=== PATIENT | male | born 1985 | race Two or more races ===

== ENCOUNTER 2020-04-20 09:48 | Outpatient (REF) | payer OTHER, SELFPAY | END 2020-04-20 09:49 | disposition home or self-care (01) | LOC: HO.LAB 09:48 | PROVIDERS: Visit Provider Internal Medicine | DX: Z20.828 Contact with and (suspected) exposure to other viral communicable diseases (principal) | CPT/HCPCS: U0003 ==

== ENCOUNTER 2020-06-05 13:16 | Emergency (ER) | payer OTHER, SELFPAY ==
[2020-06-05 13:53] VITALS: BP 125/81; PULSE 90; RESP 16; TEMP 36.8; O2SAT 98; BMI 28.3
--- NOTE | 2020-06-05 14:19 | ED.PSYCH ---
HPI - Psych General Chief Complaint: ETOH/Substance Use Stated Complaint: feet swelling,wrong medication Time Seen by Provider: 06/05/20 14:14 Source: patient Mode of arrival: ambulatory Limitations: no limitations History of Present Illness MD complaint: feels depressed, anxiety and substance abuse Onset (ago): day(s) (3) Duration: constant History of same: Yes Relieving factors: none Exacerbating factors: drug use Context: recent drug abuse Associated psychiatric symptoms: depression Associated symptoms: denies other symptoms Treatments prior to arrival: none Related Data Allergies Allergy/AdvReac Type Severity Reaction Status Date / Time Penicillins [PENICILLINS] Allergy Intermediate REDNESS, Unverified 03/07/20 18:02 SOB acetaminophen [Tylenol] Allergy Unknown stomach Verified 11/17/12 00:00 upset, rash ibuprofen [IBUPROFEN] Allergy Unknown ITCHY Unverified 03/07/20 18:02 THROAT Tylenol Precise Pain Allergy Unknown Uncoded 11/16/18 00:00 Relieving Review of Systems Review of Systems: Constitutional : No Fever, No Chills ENT/Mouth : No Ear Pain, No Nasal Congestion, No sore throat Eyes: No Eye Pain, No Swelling, No Redness Cardiovascular : No Chest Pain, No SOB Respiratory : No Cough, No Sputum, No Dyspnea Gastrointestinal : No Nausea, No Vomiting, No Diarrhea, No Hematochezia, No Melena Genitourinary : No Dysuria, No Urinary Frequency, No Hematuria Musculoskeletal : No Myalgias Skin : No Skin Lesions, No rash Neuro : No Weakness, No Numbness, No Paresthesias, No Dizziness, No Headache Psych : positive Anxiety, positive Depression, no SI/HI Heme/Lymph: No Lymphadenopathy Endocrine : No Polyuria, No Polydipsia All other systems reviewed and are negative [facility] Past Medical History Attestation statement: The following information was validated with the patient. Medical History Anxiety Depression Social History Social History Alcohol intake: never Smoking Status: Current every day smoker Use of substances other than those prescribed or required for medical reasons: Yes Substance Use Type: Crack/Cocaine, Marijuana and Opiates Advance Directives: No Advance Directives Information Provided: Yes Physical Exam Vital Signs: Vital Signs: Last Vital Signs Temp 98.3 F 06/05/20 13:53 Pulse 90 06/05/20 13:53 Resp 16 06/05/20 13:53 BP 125/81 06/05/20 13:53 Pulse Ox 98 06/05/20 13:53 Body Mass Index 28.3 Appearance: Alert. Oriented X3. No acute distress. Eyes: Pupils equal, round and reactive to light. ENT: Pharynx normal. Neck: Normal inspection. Neck supple. CVS: Normal heart rate and rhythm. Pulses normal. Respiratory: No respiratory distress. Breath sounds normal. Abdomen: Soft and nontender. Skin: Skin warm and dry. Normal skin color. Normal skin turgor. Extremities: No lower extremity edema. No calf ttp Neuro: Oriented X 3. No motor deficit. No sensory deficit. CN 2 -12 intact Psych: + depression and anxiety, no SI/HI, flat affect Course Course Course Narrative: signed out to Dr. Barrow pending [facility] MDM - Psych MDM Narrative Medical decision making narrative: 34 yo male with anxiety depression asking to speak to crisis at this time will obtain labs, and N consult he has no SI/HI he is voluntary Lab Data Result diagrams: 06/05/20 14:49 06/05/20 14:49 Labs: Lab Results 06/05/20 06/05/20 06/05/20 Range/Units 14:49 14:49 14:49 WBC 5.8 (4.8-10.8) X10*3/uL RBC 4.68 (4.60-5.80) X10*6/uL Hgb 14.2 (14.0-18.0) g/dl Hct 41.8 L (42-52) % MCV 89.3 (80-98) fL MCH 30.3 (27.0-33.0) pg MCHC 34.0 (31.0-36.0) g/dl RDW 13.6 (11.0-16.0) % Plt Count 135 L (160-400) X10*3/uL MPV 12.1 (9.4-12.4) fL Immature Gran % (Auto) 4.1 H (0.0-0.4) % Neut % (Auto) 55.2 (45-73) % Lymph % (Auto) 24.8 (20-40) % Cotton % (Auto) 9.9 (2-11) % Eos % (Auto) 5.5 H (0-4) % Baso % (Auto) 0.5 (0-2) % Lymph # (Auto) 1.5 (1.2-4.9) X10*3/uL Cotton # (Auto) 0.6 (0.1-1.2) X10*3/uL Eos # (Auto) 0.3 (0.0-0.4) X10*3/uL Baso # (Auto) 0.0 (0.0-0.2) X10*3/uL Abs Immat Gran (auto) 0.24 H (0.00-0.03) X10*3/uL Absolute Neuts (auto) 3.2 (2.0-8.3) X10*3/uL Absolute Nucleated RBC 0.000 (0.0-0.012) X10*3/uL Nucleated RBC % (auto) 0.0 (0.0-0.2) /100WBC Sodium 138 (135-145) mmol/L Potassium 4.2 (3.3-5.1) mmol/l Chloride 102 (96-108) mmol/L Carbon Dioxide 31 H (22-29) mmol/L Anion Gap 9 L (12-20) BUN 15 (9-16) mg/dL Creatinine 0.92 (0.5-1.4) mg/dL Estim Creat Clear Calc 108.4 Estimated GFR > 60 Random Glucose 92 (60-115) mg/dL Calcium 9.2 (8.4-10.2) mg/dL Ethyl Alcohol mg/dL COVID-19 (STEPHANI) Negative (Negative) COVID-19 Clin Com See Note 06/05/20 Range/Units 14:49 WBC (4.8-10.8) X10*3/uL RBC (4.60-5.80) X10*6/uL Hgb (14.0-18.0) g/dl Hct (42-52) % MCV (80-98) fL MCH (27.0-33.0) pg MCHC (31.0-36.0) g/dl RDW (11.0-16.0) % Plt Count (160-400) X10*3/uL MPV (9.4-12.4) fL Immature Gran % (Auto) (0.0-0.4) % Neut % (Auto) (45-73) % Lymph % (Auto) (20-40) % Cotton % (Auto) (2-11) % Eos % (Auto) (0-4) % Baso % (Auto) (0-2) % Lymph # (Auto) (1.2-4.9) X10*3/uL Cotton # (Auto) (0.1-1.2) X10*3/uL Eos # (Auto) (0.0-0.4) X10*3/uL Baso # (Auto) (0.0-0.2) X10*3/uL Abs Immat Gran (auto) (0.00-0.03) X10*3/uL Absolute Neuts (auto) (2.0-8.3) X10*3/uL Absolute Nucleated RBC (0.0-0.012) X10*3/uL Nucleated RBC % (auto) (0.0-0.2) /100WBC Sodium (135-145) mmol/L Potassium (3.3-5.1) mmol/l Chloride (96-108) mmol/L Carbon Dioxide (22-29) mmol/L Anion Gap (12-20) BUN (9-16) mg/dL Creatinine (0.5-1.4) mg/dL Estim Creat Clear Calc Estimated GFR Random Glucose (60-115) mg/dL Calcium (8.4-10.2) mg/dL Ethyl Alcohol < 10 mg/dL COVID-19 (STEPHANI) (Negative) COVID-19 Clin Com Discharge Plan Discharge Clinical Impression: Active substance abuse, Anxiety Instructions: Depression (ED) Additional Instructions: return to ED for any worsening symptoms or concerns
[2020-06-05 14:56] LABS: MANUAL DIFF FLAG NO
[2020-06-05 14:58] LABS: Basophils Percent Auto 0.5 % (0-2); Eosinophils Absolute Auto 0.3 X10*3/uL (0.0-0.4); Eosinophils Percent Auto 5.5 % (0-4); Hematocrit 41.8 % (42-52); Hemoglobin 14.2 g/dl (14.0-18.0); Imm Gran Abs Auto 0.24 X10*3/uL (0.00-0.03); Imm Gran Pct Auto 4.1 % (0.0-0.4); Lymphocytes Absolute Auto 1.5 X10*3/uL (1.2-4.9); Lymphocytes Percent Auto 24.8 % (20-40); Mean Corpuscular Hemoglobin 30.3 pg (27.0-33.0); Mean Corpuscular Volume 89.3 fL (80-98); Mean Platelet Volume 12.1 fL (9.4-12.4); Monocytes Absolute Auto 0.6 X10*3/uL (0.1-1.2); Monocytes Percent Auto 9.9 % (2-11); Neutrophils Absolute Auto 3.2 X10*3/uL (2.0-8.3); Neutrophils Percent Auto 55.2 % (45-73); Platelet Count 135 X10*3/uL (160-400); Red Blood Count 4.68 X10*6/uL (4.60-5.80); Red Cell Distribution Width 13.6 % (11.0-16.0); White Blood Count 5.8 X10*3/uL (4.8-10.8)
[2020-06-05 15:10] LABS: COVID-19 Test Negative (Negative)
[2020-06-05 15:30] LABS: Anion Gap 9 (12-20); Blood Urea Nitrogen 15 mg/dL (9-16); Calcium 9.2 mg/dL (8.4-10.2); Carbon Dioxide 31 mmol/L (22-29); Chloride 102 mmol/L (96-108); Creatinine Clr Calc Pharmacy 108.4; Estimated Glomerular Filt Rate > 60; Glucose Random 92 mg/dL (60-115); Potassium 4.2 mmol/l (3.3-5.1); Sodium 138 mmol/L (135-145)
--- NOTE | 2020-06-05 15:31 | MHC.RECOVSUP ---
Recovery Support note: Patient is a 34 year old Kyrgyz speaking male who presented [place] [facility] [place] reporting substance use and a desire to speak with crisis. Offered patient the opportunity to discuss his substance use and recovery supports and patient declined, stating that he was waiting on crisis to go upstairs. Explained to patient that it may take time for the crisis evaluation and to let us know if he needs anything while he waits. Patient requested food which was provided.
[2020-06-05 15:32] LABS: Ethanol < 10 mg/dL
--- NOTE | 2020-06-05 16:03 | MHC.RECOVSUP ---
This feature writer followed up with patient to discuss his current situation and what he is hoping to get out of treatment. Patient reports anxiety and depression, stating that his Mother around New Years and that this time of year is particularly hard. Reports that he doesn't have thoughts to harm himself at this time, but states I may do something I regret in the future and that his therapist has encouraged him to go to the emergency room if he feels this way. Patient had specifically asked to speak with crisis so I believe the best course of action is to have patient see N. Patient would benefit from EATS however if [facility] does not find patient to need IPLOC or EATS, patient would benefit from assistance getting into ATS. Patient reports he is open to going to detox however is not interested in going to [facility]. Discussed case with patient's RN and patient will be referred to N.
[2020-06-05 16:08] LABS: Amphetamine Screen Urine Not Detected (Not Detect); Barbiturates, Urine Not Detected (Not Detect); Benzodiazepines Screen Urine Not Detected (Not Detect); Cannabinoid Screen Urine POSITIVE (Not Detect); Cocaine Screen Urine Not Detected (Not Detect); Opiate Screen Urine Not Detected (Not Detect); Phencyclidine Screen Urine Not Detected (Not Detect)
--- NOTE | 2020-06-05 17:40 | MHC.RECOVSUP ---
Went to follow up with Patient and was told by the head nurse that patient will be seen by N.. Patient dose not qualify for detox due to patient was only positive for Marijuana.
--- NOTE | 2020-06-05 19:06 | PC.NURSE ---
Report received. PT laying in bed watching TV. Calm and cooperative. Waiting to be seen by N.
--- NOTE | 2020-06-05 20:32 | MHC.CARE ---
CARE team initially called [facility] at 1705 to confirm receipt of referral (fax) and they reported it was received and that a clinician would be seeing this patient and one other patient who was referred around the same time. CARE team updated pod. At 2030, CARE team was made aware during rounds that this patient was not seen by that clinician and CARE team immediately followed up with [facility]. They reported that patient will be seen by the next available clinician but did not offer any insight into the delay or whether there was an oversight/miscommunication. CARE team updated pod and plan remains for patient to be assessed by [facility]'s next available clinician.
--- NOTE | 2020-06-05 20:38 | PC.NURSE ---
Nurse trying to complete PT med rec. PT is sleeping at this time so nurse called PT's to inquire about meds. stated that the PT is on clonazepam and ambien at home which he gets from [facility] on [address] in [place]. [facility] pharmacy called to complete med rec and pharmacist stated that meds have not been picked up from that location in over two years.
--- NOTE | 2020-06-05 21:04 | PC.NURSE ---
called to clarify pharmacy location. stated that she made a mistake and his meds are actually picked up from [facility]. [facility] is closed at this time. Nurse to consult with provider for med rec.
[2020-06-05 22:24] VITALS: BP 126/70; PULSE 90; RESP 18; TEMP 36.3; O2SAT 96
[2020-06-05] MEDS: clonazePAM 1 MG TABLET PO (22:24)
== END 2020-06-06 01:49 | disposition home or self-care (01) ==
PROVIDERS: Emergency Provider Emergency Medicine; PCP Internal Medicine
DX: F31.9 Bipolar disorder, unspecified (principal); Z20.828 Contact with and (suspected) exposure to other viral communicable diseases; F41.9 Anxiety disorder, unspecified; F12.10 Cannabis abuse, uncomplicated
CPT/HCPCS: 36415; 80048; 80307; 80320; 85025; 87635; 99284

== ENCOUNTER 2020-07-12 09:00 | Outpatient (RCR) | payer OTHER, SELFPAY ==
--- NOTE | 2020-06-28 17:12 | P.HPPSP_ITS ---
HPI Chief Complaint: depression Sources of Information: patient interviewed and chart reviewed HPI Narrative: Patient is a 34-year-old male who presents to [facility] after recent crisis evaluation for reported increasing depression, explosive behaviors, and increasing cocaine use. Patient reports that it has been about a month since he last used cocaine and he has noted a difference in his anger. Patient with diagnosis of bipolar 2 disorder and is currently being managed by outpatient psychiatrist and therapist at [facility]. Patient is somewhat difficult to engage, offering minimal responses, appearing somewhat distracted during interview. When asked regarding anxiety and depressive symptoms, patient reported that he had neither--of note is that he reported an his [facility] admission assessment that he was struggling with depressive symptoms, passive suicidal ideation, and anxiety. When asked about his substance use patient reported that he was overtaking his prescription medication (clonazepam and Ambien) and was also using cocaine. He reports that he has not been overtaking his prescription medications in over a month as well. He has an upcoming appointment with his psychiatric provider at the end of July. Past Psychiatric History: Patient reported 1 psychiatric admission Outpatient behavioral health providers at [facility] Medical History Anxiety Depression Narrative: Patient denies any chronic medical issues Substance History: Per HPI Meds/Allergies Allergies Allergies Allergy/AdvReac Type Severity Reaction Status Date / Time Penicillins [PENICILLINS] Allergy Intermediate REDNESS, Unverified 03/07/20 18:02 SOB acetaminophen [Tylenol] Allergy Unknown stomach Verified 11/17/12 00:00 upset, rash ibuprofen [IBUPROFEN] Allergy Unknown ITCHY Unverified 03/07/20 18:02 THROAT Tylenol Precise Pain Allergy Unknown Uncoded 11/16/18 00:00 Relieving Mental Status Exam Mental Status Exam Patient Appearance: Well Grooomed and Appropriate Level of Consciousness: Awake and Alert Patient Behavior: Distractible Mood Description: Calm Affect Description: Calm Speech Pattern: Clear Thought Process: Distracted Thought Content: positive for Burns Judgement: Fair Assessment & Plan Assessment & Plan (1) Bipolar 2 disorder: Status: Acute Code(s): F31.81 - Bipolar II disorder Assessment and Plan: No medication change is necessary Upcoming outpatient provider appointment in place Follow-up as needed Certification I certify that partial hospital treatment is medically necessary due to the symptoms and problems resulting from the patient's mental illness and the failure to treat the patient at the partial hospital level of care would likely result in the patient requiring inpatient psychiatric care which could not be prevented at a less intensive level of care. Telehealth Telehealth Location of provider rendering services: practice address Location of patient: address on file Patient Identification confirmed using: Name, : Yes Telehealth method: video Patient verbally consented to treatment: Yes Patient verbally consented to billing insurance company: Yes Time spent with patient (mins): 15
--- NOTE | 2020-07-01 15:18 | PC.NURSE ---
I called the client to review his treatment plan after his case was opened in clinical team. We discussed treatment goals, aftercare plans and schedule. We discussed his last day will be between 07/12-07/16 depending on his progress and needs. He has out patient providers. When I offered to make a referral for anger management for after discharge he declined my offer stating he has too much on his plate.
--- NOTE | 2020-07-02 08:33 | PC.NURSE ---
The client called out today to stay with his spend time with his extended family because of the recent loss of their family member. He states that he will be in tomorrow.
[2020-07-09 12:16] VITALS: BMI 29.0
--- NOTE | 2020-07-10 08:09 | PC.NURSE ---
Niles did not show up to his Telehealth appointment with [facility] prescriber Dianne SEPULVEAD that was scheduled on 07/09/20. Team is aware.
--- NOTE | 2020-07-10 08:38 | PC.NURSE ---
Patient called this morning stating he will not be attending PHP as he has appointments all day today that he forgot about until he looked at his calender. Stated he will be in tomorrow. PHP staff aware.
--- NOTE | 2020-07-11 13:22 | P.PNPSP_ITS ---
Subjective Subjective Date of Service: 07/11/20 Reason For Visit: depression Interim History: Mr. Proctor reports that he is doing well in that he feels less anxious, less depressed. He denies SI/HI. He denies recent use of cocaine but admits to using cannabis regularly as it calm me down. He reports sleeping and eating well. 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 Of note, pt on clonazepam 1mg po TID and ambien 10mg po qhs- concern about misuse or abuse given his substance use hx of cocaine. Medications prescribed by OP associate professor of psychology Tony Bond. Medication Compliance: Yes Side effects from medications: No Attending Groups: Yes Review of Systems Cardiovascular: Reports no additional cardiovascular complaints Respiratory: Reports no additional respiratory complaints Gastrointestinal: Reports no additional gastrointestinal complaints Endocrine: Reports no additional endocrine complaints Mental Status Exam Mental Status Exam Patient Appearance: Well Grooomed and Appropriate Level of Consciousness: Awake and Alert Patient Behavior: Appropriate Mood Description: Calm Affect Description: Calm Patient Cognition Impaired: No Speech Pattern: Clear and Spontaneous Speech Memory Description: Intact Hallucinations: None Delusions: Not Present Thought Process: Intact (linear) Thought Content: positive for Intact (no signs of psychosis, future oriented) Judgement: Fair Diagnostics Vital Signs (24Hr): Body Mass Index 29.0 Assessment & Plan Assessment & Plan (1) Bipolar 2 disorder: Status: Acute Code(s): F31.81 - Bipolar II disorder Assessment and Plan: No medication change is necessary Upcoming outpatient provider appointment in place Follow-up as needed Certification I certify that partial hospital treatment is medically necessary due to the symptoms and problems resulting from the patient's mental illness and the failure to treat the patient at the partial hospital level of care would likely result in the patient requiring inpatient psychiatric care which could not be prevented at a less intensive level of care. Greater than 50% of the session was spent on counseling and/or coordination of care Discharge Plan Discharge Attending provider: Tc Waddell Medications: No Action clonazepam 1 mg Tablet 1 mg PO TID PRN (Reason: Anxiety) RF: 0 zolpidem [Ambien] 10 mg Tablet See Rx Instructions .ROUTE .COMPLEX RF: 0 ziprasidone HCl 60 mg Capsule 60 mg PO BEDTIME RF: 0 Telehealth Telehealth Location of provider rendering services: practice address Location of patient: address on file Patient Identification confirmed using: Name, : Yes Telehealth method: video Patient verbally consented to treatment: Yes Patient verbally consented to billing insurance company: Yes Patient informed of any privacy concerns related to visit: Yes Time spent with patient (mins): 15
--- NOTE | 2020-07-15 09:30 | PC.NURSE ---
Pt arrived to the community meeting and said he was not able to continue the day in [facility]. He asked for a phone call. I called and he shared that his 35 year old brother is in the hospital [facility] COVID and severe asthma. Pt said he is unable to focus in group today, and that he thinks it's his last day anyway. I spoke to him about the possibility of using group for support and he declined. He said he's rather not return to [facility], but that he's safe and very grateful for all of the support from peers and staff here. I let him know Irene would call later and he said this is fine.
== END 2020-07-12 23:55 | disposition left against medical advice (07) ==
LOC: HO.PHPA 09:00
PROVIDERS: Visit Provider Psychiatry & Neurology Psychiatry
DX: F31.81 Bipolar II disorder (principal)
CPT/HCPCS: 90791; 90853; 99202; 99213

== ENCOUNTER 2020-08-05 10:09 | Outpatient (REF) | payer OTHER, SELFPAY | END 2020-08-05 10:10 | disposition home or self-care (01) | LOC: HO.LAB 10:09 | PROVIDERS: Visit Provider Internal Medicine | DX: Z20.822 Contact with and (suspected) exposure to COVID-19 (principal) | CPT/HCPCS: 36415; C9803; U0003; U0005 ==

== ENCOUNTER 2020-08-19 09:31 | Outpatient (REF) | payer OTHER, SELFPAY ==
--- NOTE | 2020-08-19 09:54 | ECG_ITS ---
Test Reason : OPOID DEPENDANCE Blood Pressure : / mmHG Vent. Rate : 093 BPM Atrial Rate : 093 BPM P-R Int : 150 ms QRS Dur : 080 ms QT Int : 326 ms P-R-T Axes : 070 064 046 degrees QTc Int : 405 ms Normal sinus rhythm Normal ECG When compared with ECG of 01-MAR-2019 08:54, No significant change was found Referred By: Yue Parrish Electronically Signed By:MARGARITA ZAVALA
[2020-08-19 13:46] LABS: Amphetamine Screen Urine Not Detected (Not Detect); Barbiturates, Urine Not Detected (Not Detect); Benzodiazepines Screen Urine POSITIVE (Not Detect); Cannabinoid Screen Urine POSITIVE (Not Detect); Cocaine Screen Urine Not Detected (Not Detect); Opiate Screen Urine Not Detected (Not Detect); Phencyclidine Screen Urine Not Detected (Not Detect)
== END 2020-08-19 09:32 | disposition home or self-care (01) ==
LOC: HO.LAB 09:31
PROVIDERS: PCP Internal Medicine; Visit Provider Clinical Nurse Specialist Psychiatric/Mental Health
DX: F11.20 Opioid dependence, uncomplicated (principal); Z79.899 Other long term (current) drug therapy
CPT/HCPCS: 80307; 93005

== ENCOUNTER 2021-01-02 19:44 | Emergency (ER) | payer OTHER, SELFPAY ==
[2021-01-02 20:16] VITALS: BP 109/62; PULSE 135; RESP 20; TEMP 37.3; O2SAT 96; BMI 29.7
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
[2021-01-02] MEDS: clonazePAM 1 MG TABLET PO (21:01)
[2021-01-02] MEDS: Zolpidem Tartrate 5 MG TABLET PO (21:01)
[2021-01-02] MEDS: Ziprasidone 60 MG CAPSULE PO (21:04)
[2021-01-02 21:10] LABS: COVID-19 Test Negative (Negative)
--- NOTE | 2021-01-02 22:16 | PC.NURSE ---
Patient currently in bed appears sleeping, no distress observed/reported, N referral completed via smart-sheet, called and spoke with Rickey, confirmed receipt of referral, per them no clinician available for tonight, patient will be seen in the morning, will continue to monitor.
--- NOTE | 2021-01-03 | ECG_ITS ---
Test Reason : MEDICAL CLEARANCE Blood Pressure : / mmHG Vent. Rate : 076 BPM Atrial Rate : 076 BPM P-R Int : 170 ms QRS Dur : 088 ms QT Int : 370 ms P-R-T Axes : 070 065 053 degrees QTc Int : 416 ms Normal sinus rhythm Early repolarization Normal ECG When compared with ECG of 19-AUG-2020 10:01, No significant change was found Referred By: Socrates Avalos Electronically Signed By:Lm Swan
--- NOTE | 2021-01-03 06:36 | PC.NURSE ---
Patient slept through the night, woke up for BHN assessment, engaged, disposition is section 12 inpatient bed search, patient and provider aware and in agreement to the plan, med recs completed/compliant with medication, good behavioral control, urine pending, no distress observed/reported, will continue to monitor.
--- NOTE | 2021-01-03 07:09 | PC.NURSE ---
patient appears at rest at present, respirations even and unlabored. patient appears in no distress
[2021-01-03 08:17] VITALS: BP 122/69; PULSE 95; RESP 18; TEMP 36.6; O2SAT 97
[2021-01-03] MEDS: clonazePAM 1 MG TABLET PO (09:45)
[2021-01-03 10:37] LABS: Amphetamine Screen Urine Not Detected (Not Detect); Barbiturates, Urine Not Detected (Not Detect); Benzodiazepines Screen Urine Not Detected (Not Detect); Cannabinoid Screen Urine POSITIVE (Not Detect); Cocaine Screen Urine Not Detected (Not Detect); Opiate Screen Urine Not Detected (Not Detect); Phencyclidine Screen Urine Not Detected (Not Detect)
[2021-01-03 10:47] LABS: MANUAL DIFF FLAG NO
[2021-01-03 10:49] LABS: Basophils Percent Auto 0.7 % (0-2); Eosinophils Absolute Auto 0.3 X10*3/uL (0.0-0.4); Eosinophils Percent Auto 5.9 % (0-4); Hematocrit 49.9 % (42-52); Imm Gran Abs Auto 0.03 X10*3/uL (0.00-0.03); Imm Gran Pct Auto 0.7 % (0.0-0.4); Lymphocytes Absolute Auto 1.7 X10*3/uL (1.2-4.9); Lymphocytes Percent Auto 36.3 % (20-40); Mean Corpuscular HGB Conc 34.1 g/dl (31.0-36.0); Mean Corpuscular Hemoglobin 30.5 pg (27.0-33.0); Mean Corpuscular Volume 89.4 fL (80-98); Mean Platelet Volume 12.4 fL (9.4-12.4); Monocytes Absolute Auto 0.5 X10*3/uL (0.1-1.2); Monocytes Percent Auto 10.8 % (2-11); Neutrophils Absolute Auto 2.1 X10*3/uL (2.0-8.3); Neutrophils Percent Auto 45.6 % (45-73); Platelet Count 162 X10*3/uL (160-400); Red Blood Count 5.58 X10*6/uL (4.60-5.80); Red Cell Distribution Width 13.1 % (11.0-16.0); White Blood Count 4.5 X10*3/uL (4.8-10.8)
[2021-01-03 11:11] LABS: Alanine Aminotransferase 16 U/L (0-40); Albumin Level 5.1 g/dL (3.5-5.0); Alkaline Phosphatase 76 U/L (39-117); Anion Gap 13 (12-20); Aspartate Amino Transferase 17 U/L (5-37); Bilirubin Total 0.6 mg/dL (0.0-1.0); Blood Urea Nitrogen 23 mg/dL (9-16); Calcium 10.3 mg/dL (8.4-10.2); Carbon Dioxide 28 mmol/L (22-29); Chloride 105 mmol/L (96-108); Creatinine Clr Calc Pharmacy 98.2; Estimated Glomerular Filt Rate > 60; Glucose Random 96 mg/dL (60-115); Potassium 5.3 mmol/L (3.3-5.1); Sodium 141 mmol/L (135-145); Total Protein 7.8 g/dL (6.5-8.0)
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
== END 2021-01-03 13:17 | disposition home or self-care (01) ==
PROVIDERS: Nurse Practitioner Family; Physician Assistant; Emergency Provider Student in an Organized Health Care Education/Training Program; PCP Internal Medicine
DX: F41.9 Anxiety disorder, unspecified (principal); F20.9 Schizophrenia, unspecified; F31.81 Bipolar II disorder; Z79.899 Other long term (current) drug therapy; Z20.822 Contact with and (suspected) exposure to COVID-19
CPT/HCPCS: 36415; 80053; 80307; 85025; 87635; 93005; 99284

== ENCOUNTER 2021-01-11 09:31 | Emergency (ER) | payer OTHER, SELFPAY ==
--- NOTE | ~2021-01-11 | XR_ITS ---
EXAMINATION: XR CHEST CLINICAL INFORMATION: Cough COMPARISON: Chest x-ray on 10/05/2018 TECHNIQUE: 2 views of the chest were obtained. FINDINGS: The cardiac silhouette is normal. There is mild diffuse bronchial wall thickening. There are no areas of consolidation. There are no pleural effusions or pneumothoraces. The bones and soft tissues are unremarkable for the patient's age. XR/XR chest 2V IMPRESSION: Bronchial wall thickening may be infectious and/or inflammatory in etiology.
[2021-01-11 09:35] VITALS: BP 120/81; PULSE 107; RESP 24; TEMP 36.6; O2SAT 94; BMI 29.8
--- NOTE | 2021-01-11 09:55 | ED.URI ---
HPI - URI/Sore Throat General Chief Complaint: Upper Respiratory Symptoms Stated Complaint: CONGESTION Time Seen by Provider: 01/11/21 09:53 Source: patient Mode of arrival: ambulatory Limitations: no limitations History of Present Illness HPI Narrative: A 35-year-old male came in for evaluation of upper respiratory symptoms. 35-year-old male came in for evaluation of coughing, nasal congestion, difficulty breathing for 2 days. Patient is coughing with clear sputum, no fever, no chills, no sick contact. Patient is refusing to take COVID vaccination. No recent travel. Patient declined any SI or HI, but requesting drug screening test. Related Data Home Medications Medication Instructions Recorded Confirmed clonazepam 1 mg PO TID PRN 07/09/20 01/02/21 ziprasidone HCl 60 mg PO BEDTIME 07/09/20 01/02/21 zolpidem [Ambien] See Rx Instructions .ROUTE .COMPLEX 07/09/20 01/02/21 Previous Rx's Medication Instructions Recorded albuterol sulfate 1 inh INHALATION QID PRN #8.5 g 01/11/21 azithromycin [Zithromax Z-Gaston] See Rx Instructions .ROUTE 01/11/21 .COMPLEX #6 tab prednisone 20 mg PO BID #10 tab 01/11/21 Allergies Allergy/AdvReac Type Severity Reaction Status Date / Time Penicillins [PENICILLINS] Allergy Intermediate REDNESS, Unverified 03/07/20 18:02 SOB acetaminophen [Tylenol] Allergy Unknown stomach Verified 11/17/12 00:00 upset, rash ibuprofen [IBUPROFEN] Allergy Unknown ITCHY Unverified 03/07/20 18:02 THROAT Tylenol Precise Pain Allergy Unknown Uncoded 11/16/18 00:00 Relieving Review of Systems Review of Systems: All other systems are reviewed and are negative Constitutional: Reports as per HPI and Reports no additional constitutional complaints Eyes: Reports as per HPI and Reports no additional eye complaints Reports system reviewed and no additional complaints, except as documented Cardiovascular: Reports as per HPI and Reports no additional cardiovascular complaints Respiratory: Reports as per HPI and Reports no additional respiratory complaints Gastrointestinal: Reports as per HPI and Reports no additional gastrointestinal complaints Genitourinary: Reports no additional female genitourinary complaints Musculoskeletal: Reports no additional musculoskeletal complaints Skin/Breast: Reports system reviewed and no additional complaints, except as docu Psychiatric: Reports no additional psychiatric complaints Endocrine: Reports no additional endocrine complaints Hematologic/Lymphatic: Reports no additional hematologic/lymphatic complaints Allergic/Immunologic: Reports no additional allergic/immunologic complaints Reports system reviewed and no additional complaints, except as documented and Reports Abnormal speech present [facility] Past Medical History Medical History Anxiety Asthma Depression Methadone use Social History Social History Household Members: Spouse and Children Alcohol intake: never Patient Tobacco Use Status: Current everyday Tobacco user Use of substances other than those prescribed or required for medical reasons: No Substance Use Type: Crack/Cocaine, Marijuana and Opiates Advance Directives: Yes Advance Directives Information Provided: No Advance Directives on File: No Physical Exam Vital Signs: Vital Signs: Last Vital Signs Temp 97.8 F 01/11/21 09:35 Pulse 101 H 01/11/21 10:14 Resp 24 H 01/11/21 09:35 BP 120/81 01/11/21 09:35 Pulse Ox 94 01/11/21 09:35 Body Mass Index 29.8 Vital signs have been reviewed as appeared to be correct. Blood pressure normal. Heart rate normal. Respiration rate normal. Temperature normal. Oxygen saturation normal. Appearance: Alert. Oriented X3. No acute distress. Head: Normal external exam. Normocephalic. Atraumatic. No Green signs noted. No raccoon eyes noted Eyes: PERRLA. EOMI. Conjunctiva and sclera normal. Eyelids normal. ENT: TM's Normal. Pharynx normal. Uvula midline. Moist mucous membranes. No trismus noted. No drooling noted. No muffled voice noted. Neck: Normal inspection. Neck supple. FROM. No adenopathy. Thyroid Normal. No meningeal signs. No neck mass noted. CVS: Normal heart rate and rhythm. Heart sound normal. No murmurs noted. Pulses normal throughout. Respiratory: No respiratory distress. Painless inspiration. Breath sounds normal. Diffuse mild expiratory wheezing. Chest nontender. No accessory muscle usage noted or decreased air movement noted. Abdomen: Soft and nontender. Bowel sounds normal in all 4 quadrants. No distention noted. No organomegaly noted. No visible injury noted. Back: No CVA tenderness. Full range of motion noted. Skin: Skin warm and dry. Normal skin color. Normal skin turgor. No rashes/lesions/lacerations noted. Extremities: No lower extremity edema. Extremities exhibit normal range of motion. Extremities nontender. Neuro: Oriented X 3. No motor deficit. No sensory deficit. Reflexes normal. Course Course Course Narrative: Assessment and plan. Bronchopneumonia will treat with Z-Gaston, prednisone, bronchodilator. MDM - URI/Sore Throat Lab Data Attestation: I reviewed the patient's lab results. Labs: Lab Results 01/11/21 Range/Units 10:01 COVID-19 (STEPHANI) Negative (Negative) COVID-19 Clin Com See Note Imaging Data Chest x-ray: Radiologist's impression: Bronchial wall thickening may be infectious and/or inflammatory in etiology. Discharge Plan Discharge Clinical Impression: Bronchopneumonia Patient Disposition: Home, Self-Care Instructions: Acute Bronchitis (ED) Prescriptions: New prednisone 20 mg tablet 20 mg PO BID Qty: 10 RF: 0 azithromycin [Zithromax Z-Gaston] 250 mg tablet See Rx Instructions .ROUTE .COMPLEX Qty: 6 RF: 0 albuterol sulfate 90 mcg/actuation HFA aerosol inhaler 1 inh inhalation QID PRN (Reason: shortness of breath or wheezing) Qty: 8.5 RF: 0 No Action clonazepam 1 mg Tablet 1 mg PO TID PRN (Reason: Anxiety) RF: 0 zolpidem [Ambien] 10 mg Tablet See Rx Instructions .ROUTE .COMPLEX RF: 0 ziprasidone HCl 60 mg Capsule 60 mg PO BEDTIME RF: 0 Referrals: Yue Kay MD [Primary Care Provider] - 2 days
[2021-01-11] MEDS: predniSONE 20 MG TABLET PO (09:59)
[2021-01-11] MEDS: Albuterol/Iprat 2.5/0.5MG 3 ML AMPUL.NEB INHALE (10:12)
[2021-01-11] MEDS: Albuterol Sulfate (0.083%) 2.5 MG/3 ML VIAL.NEB INHALE (10:12)
[2021-01-11 10:14] VITALS: PULSE 101; O2SAT 96
[2021-01-11 10:34] LABS: COVID-19 Test Negative (Negative)
[2021-01-11 12:04] LABS: Amphetamine Screen Urine Not Detected (Not Detect); Barbiturates, Urine Not Detected (Not Detect); Benzodiazepines Screen Urine Not Detected (Not Detect); Cannabinoid Screen Urine POSITIVE (Not Detect); Cocaine Screen Urine Not Detected (Not Detect); Opiate Screen Urine Not Detected (Not Detect); Phencyclidine Screen Urine Not Detected (Not Detect)
== END 2021-01-11 11:45 | disposition home or self-care (01) ==
PROVIDERS: Emergency Provider Emergency Medicine; PCP Internal Medicine
DX: J18.0 Bronchopneumonia, unspecified organism (principal); Z20.822 Contact with and (suspected) exposure to COVID-19; J45.909 Unspecified asthma, uncomplicated; F31.81 Bipolar II disorder; F11.20 Opioid dependence, uncomplicated; F12.90 Cannabis use, unspecified, uncomplicated; F17.210 Nicotine dependence, cigarettes, uncomplicated; Z79.899 Other long term (current) drug therapy
CPT/HCPCS: 36415; 71046; 80307; 87635; 94640; 99284

== ENCOUNTER 2021-05-29 14:25 | Outpatient (REF) | payer OTHER, SELFPAY ==
[2021-05-29 15:09] LABS: Estimated Average Glucose 105 mg/dL; Hemoglobin A1c % 5.3 %
[2021-05-29 15:20] LABS: Cholesterol 218 mg/dL; HDL Cholesterol 45 mg/dL; LDL Cholesterol Calculated 154 mg/dl; Triglycerides 98 mg/dL
== END 2021-05-29 14:26 | disposition home or self-care (01) ==
LOC: HO.LAB 14:25
PROVIDERS: PCP Internal Medicine; Visit Provider Registered Nurse
DX: Z51.81 Encounter for therapeutic drug level monitoring (principal)
CPT/HCPCS: 36415; 80061; 83036

== ENCOUNTER 2021-07-18 08:53 | Outpatient (REF) | payer OTHER, SELFPAY ==
--- NOTE | ~2021-07-18 | XR_ITS ---
EXAMINATION: XR KNEE, RIGHT CLINICAL INFORMATION: Pain COMPARISON: Previous x-ray October 2012 TECHNIQUE: Four views of the right knee. FINDINGS: Bones and soft tissues are normal. No fracture or joint effusion. Alignment is anatomic. Joint spaces are well maintained. No abnormal soft tissue calcification. XR/XR knee RT 2V IMPRESSION: Normal right knee.
[2021-07-18 10:43] LABS: Amphetamine Screen Urine Not Detected (Not Detect); Barbiturates, Urine Not Detected (Not Detect); Benzodiazepines Screen Urine Not Detected (Not Detect); Cannabinoid Screen Urine POSITIVE (Not Detect); Cocaine Screen Urine Not Detected (Not Detect); Fentanyl, urine Not Detected (Not Detect); Opiate Screen Urine Not Detected (Not Detect); Phencyclidine Screen Urine Not Detected (Not Detect)
== END 2021-07-18 08:54 | disposition home or self-care (01) ==
LOC: HO.LAB 08:53
PROVIDERS: PCP Internal Medicine; Visit Provider Internal Medicine
DX: F11.20 Opioid dependence, uncomplicated (principal); M25.561 Pain in right knee
CPT/HCPCS: 73560; 80307

== ENCOUNTER 2021-07-31 06:34 | Outpatient (REF) | payer OTHER, SELFPAY | END 2021-07-31 06:35 | disposition home or self-care (01) | LOC: HO.HOSX 06:34 | PROVIDERS: Visit Provider Physician Assistant | DX: Z13.89 Encounter for screening for other disorder (principal) ==

== ENCOUNTER 2022-03-13 08:13 | Outpatient (REF) | payer OTHER, SELFPAY ==
[2022-03-13 08:53] LABS: COVID-19 Test Negative (Negative); IDNOW Serial# 55D5AD1C
== END 2022-03-13 08:14 | disposition home or self-care (01) ==
LOC: HO.LAB 08:13
PROVIDERS: Visit Provider Internal Medicine
DX: Z20.822 Contact with and (suspected) exposure to COVID-19 (principal)
CPT/HCPCS: 87635; C9803

== ENCOUNTER 2022-03-26 09:07 | Emergency (ER) | payer OTHER, SELFPAY ==
--- NOTE | ~2022-03-26 | XR_ITS ---
EXAMINATION: XR CHEST CLINICAL INFORMATION: Shortness of breath COMPARISON: 01/11/2021 TECHNIQUE: 2 views of the chest were obtained. FINDINGS: Lungs are well-inflated and clear. Trachea is midline in position. No interstitial disease, consolidation or mass. No pleural effusion or pneumothorax. Cardiac silhouette and pulmonary vessels are normal in size. The mediastinum and lukas have normal contour. The visualized bones, and upper abdomen, are unremarkable. XR/XR chest 2V IMPRESSION: No evidence of pneumonia. No acute cardiopulmonary abnormality compared to 01/11/2021.
[2022-03-26 09:19] VITALS: BP 110/72; PULSE 112; RESP 20; TEMP 36.7; O2SAT 97; BMI 29.8
[2022-03-26 10:07] LABS: COVID-19 Test Negative (Negative); IDNOW Serial# 9DB6401D
[2022-03-26] MEDS: Albuterol Sulfate 90 MCG 8 GM INHALER 2 PUFF INHALE (11:55)
[2022-03-26 11:59] VITALS: PULSE 106; RESP 18; O2SAT 98
[2022-03-26] MEDS: predniSONE 20 MG TABLET 60 MG PO (12:11)
--- NOTE | 2022-03-26 12:11 | ED.ASTHMA ---
HPI - Asthma General Chief Complaint: Dyspnea <Opal Gayle NP - Last Filed: 03/26/22 18:28> Stated Complaint: Asthma <Opal Gayle NP - Last Filed: 03/26/22 18:28> Time Seen by Provider: 03/26/22 11:19 <Opal Gayle NP - Last Filed: 03/26/22 18:28> Source: patient <Opal Gayle NP - Last Filed: 03/26/22 18:28> Mode of arrival: ambulatory <Opal Gayle NP - Last Filed: 03/26/22 18:28> Limitations: no limitations <Opal Gayle NP - Last Filed: 03/26/22 18:28> History of Present Illness HPI Narrative: This is a 36-year-old male with a past medical history of asthma exacerbation, dyslipidemia, bipolar disorder, coming to the ED complaining of shortness of breath that started Deya at work and has not improved after multiple uses of his inhaler. 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 Patient reports a dry cough, never had to be intubated or hospitalized for prior asthma exacerbations. The patient denies any sick contacts, fever, chills, chest pain, nausea, vomiting, diarrhea, or leg pain. <Opal Gayle NP - Last Filed: 03/26/22 18:28> This is a 36-year-old male with a past medical history of asthma, dyslipidemia, bipolar disorder, coming to the ED complaining of shortness of breath that started Deya at work and has not improved after multiple uses of his inhaler. 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 Patient reports a dry cough, never had to be intubated or hospitalized for prior asthma exacerbations. The patient denies any sick contacts, fever, chills, chest pain, nausea, vomiting, diarrhea, or leg pain. <FREDERIC Davis - Last Filed: 03/26/22 15:45> MD complaint: shortness of breath <Opal Gayle NP - Last Filed: 03/26/22 18:28> Onset (ago): day(s) (for two days ) <Opal Gayle NP - Last Filed: 03/26/22 18:28> Severity: mild <Opal Gayle NP - Last Filed: 03/26/22 18:28> Context: other (works at a chemical plant that aggrevates it) <Opal Gayle NP - Last Filed: 03/26/22 18:28> Associated symptoms: dry cough <Opal Gayle NP - Last Filed: 03/26/22 18:28> Asthma History: adult onset <Opal Gayle NP - Last Filed: 03/26/22 18:28> Treatments Prior to Arrival: inhaled bronchodilator <COCO Ambrocio Last Filed: 03/26/22 18:28> Related Data Current Asthma Therapy: inhaled bronchodilator <COCO Ambrocio Last Filed: 03/26/22 18:28> Home Medications: Home Medications Medication Instructions Recorded Confirmed clonazepam 1 mg tablet 1 mg PO TID PRN Anxiety 07/09/20 01/06/22 ziprasidone HCl 60 mg capsule 60 mg PO BEDTIME 07/09/20 01/06/22 zolpidem 10 mg tablet (Ambien) See Rx Instructions .Route .COMPLEX 07/09/20 01/06/22 Previous Rx's Medication Instructions Recorded atorvastatin 10 mg tablet 10 mg PO BEDTIME 90 days #90 tabs 07/09/21 benzonatate 100 mg capsule 100 mg PO BID PRN cough #14 caps 03/26/22 prednisone 20 mg tablet 40 mg PO DAILY 5 days #10 tabs 03/26/22 <Opal Gayle NP - Last Filed: 03/26/22 18:28> Allergies/Adverse Reactions: Allergies Allergy/AdvReac Type Severity Reaction Status Date / Time acetaminophen [Tylenol] Allergy Intermediate stomach Verified 01/06/22 10:23 upset, rash ibuprofen [IBUPROFEN] Allergy Intermediate ITCHY Verified 01/06/22 10:23 THROAT Penicillins [PENICILLINS] Allergy Intermediate REDNESS, Verified 01/06/22 10:23 SOB <COCO Ambrocio Last Filed: 03/26/22 18:28> Review of Systems Review of Systems: Constitutional: No Weight loss, No Fever, No Chills ENT/Mouth: No Ear Pain, No Nasal Congestion, No Sinus Pain, No Hoarseness, No sore throat, No Rhinorrhea, No Swallowing Difficulty Cardiovascular: No Chest Pain, No SOB Respiratory: +Cough, +sob, +stuffy nose, No Sputum, No Wheezing Gastrointestinal: No Nausea, No Vomiting, No Diarrhea, No Constipation, No Abdominal pain Genitourinary: No Dysuria, No Urinary Frequency, No Hematuria, No Urinary Incontinence/retention, No Urgency, No Flank Pain Musculoskeletal: No joint pain, No Myalgias, No Joint Swelling Skin: No Skin Lesions, No rash Neuro: No Weakness, No Numbness, No Paresthesias <Opal Gayle NP - Last Filed: 03/26/22 18:28> Constitutional: No Weight loss, No Fever, No Chills ENT/Mouth: No Ear Pain, + Nasal Congestion, No Sinus Pain, No Hoarseness, No sore throat, No Rhinorrhea, No Swallowing Difficulty Cardiovascular: No Chest Pain, No SOB Respiratory: +Cough, +sob, No Sputum, + Wheezing Gastrointestinal: No Nausea, No Vomiting, No Diarrhea, No Constipation, No Abdominal pain Genitourinary: No Dysuria, No Urinary Frequency, No Hematuria, No Urinary Incontinence/retention, No Urgency, No Flank Pain Musculoskeletal: No joint pain, No Myalgias, No Joint Swelling Skin: No Skin Lesions, No rash Neuro: No Weakness, No Numbness, No Paresthesias <FREDERIC Davis - Last Filed: 03/26/22 15:45> Yes all other systems are reviewed and are negative <Opal Gayle NP - Last Filed: 03/26/22 18:28> [facility] Past Medical History Attestation statement: The following information was validated with the patient. <Opal Gayle NP - Last Filed: 03/26/22 18:28> Source: old records reviewed <Opal Gayle NP - Last Filed: 03/26/22 18:28> nursing notes reviewed <FREDERIC Davis - Last Filed: 03/26/22 15:45> Medical History: Medical History (Updated 03/26/22 @ 12:11 by Opal Gayle NP) Anxiety Asthma Depression Dyslipidemia Methadone use Physical exam Right knee pain <Opal Gayle NP - Last Filed: 03/26/22 18:28> Surgical History: Surgical History No pertinent past surgical history <Opal Gayle NP - Last Filed: 03/26/22 18:28> Family History Family History: Family History Mother No problems noted. Father No problems noted. <Opal Gayle NP - Last Filed: 03/26/22 18:28> Social History Social History: Social History Household Members: Spouse and Children Housing: Apartment Alcohol intake: never Patient Tobacco Use Status: Current everyday Tobacco user Tobacco use type: Cigarette Cigarettes Per Day: 4 e-Cigarette/Vaping Use: Never Used Second Hand Smoke Exposure: No Substance Use Type: Crack/Cocaine, Marijuana and Opiates Advance Directives: No Advance Directives Information Provided: No service: No Current occupational status: employed Cognitive needs: No Hearing needs: No Vision needs: No <Opal Gayle NP - Last Filed: 03/26/22 18:28> Physical Exam Vital Signs: Vital Signs: Last Vital Signs Temp 98.0 F 03/26/22 09:19 Pulse 106 H 03/26/22 11:59 Resp 18 03/26/22 11:59 BP 110/72 03/26/22 09:19 Pulse Ox 97 03/26/22 09:19 O2 Del Method 03/26/22 09:19 BMI result Body Mass Index 29.8 <Opal Gayle NP - Last Filed: 03/26/22 18:28> Vital Signs: Last Vital Signs Temp 98.0 F 03/26/22 09:19 Pulse 106 H 03/26/22 11:59 Resp 18 03/26/22 11:59 BP 110/72 03/26/22 09:19 Pulse Ox 97 03/26/22 09:19 O2 Del Method 03/26/22 09:19 BMI result Body Mass Index 29.8 Vital signs have been reviewed. Blood pressure normal. Pulse 112. Respiration normal. Temperature normal. Oxygen saturation normal. <FREDERIC Davis - Last Filed: 03/26/22 15:45> Appearance: Alert. Oriented X3. No acute distress. Head: Normal external exam. Normocephalic. Atraumatic. Eyes: PERRLA. EOMI. Conjunctiva and sclera normal. Eyelids normal. ENT: EAC normal. TM's Normal. No septal hematoma noted. No hemotympanum noted. Pharynx normal. Uvula midline. Moist mucous membranes. No lesions/ulcerations or masses noted on the tongue. Normal voice. No trismus noted. No drooling noted. No muffled voice noted. Neck: Normal inspection. Neck supple. FROM. No adenopathy. Thyroid Normal. No tracheal deviation noted. No crepitus is noted. No meningeal signs. No neck mass noted. No signs of trauma noted. CVS: Normal heart rate and rhythm. Heart sound normal. Pulses normal throughout. No murmurs/rales/gallops. Respiratory: No respiratory distress. Breath sounds normal. No wheezes/rales/rhonchi noted. Chest nontender. No crepitus is noted. No accessory muscle usage noted or decreased air movement noted. Abdomen: Soft and nontender. Nondistended. No guarding. No rigidity. Back: No CVA tenderness. Full range of motion noted. Nontender. Skin: Skin warm and dry. Normal skin color. Normal skin turgor. No rashes/lesions/lacerations noted. Extremities: No lower extremity edema. No calf tenderness is noted. Extremities exhibit normal range of motion and nontender. Neuro: Oriented X 3. No motor deficit. No sensory deficit. CN's II-XII intact bilaterally? <Opal Gayle NP - Last Filed: 03/26/22 18:28> Appearance: Alert. Oriented X3. No acute distress. Head: Normal external exam. Normocephalic. Atraumatic. Eyes: PERRLA. EOMI. Conjunctiva and sclera normal. Eyelids normal. ENT: EAC normal. TM's Normal. Pharynx normal. Uvula midline. Moist mucous membranes. No lesions/ulcerations or masses noted on the tongue. Normal voice. No trismus noted. No drooling noted. No muffled voice noted. Neck: Normal inspection. Neck supple. FROM. No adenopathy. Thyroid Normal. No tracheal deviation noted. No crepitus is noted. No meningeal signs. No neck mass noted. No signs of trauma noted. CVS: Normal heart rate and rhythm. Heart sound normal. Pulses normal throughout. No murmurs/rales/gallops. Respiratory: No respiratory distress. Breath sounds normal. No wheezes/rales/rhonchi noted. Chest nontender. No crepitus is noted. No accessory muscle usage noted or decreased air movement noted. Abdomen: Soft and nontender. Nondistended. No guarding. No rigidity. Back: Full range of motion noted. Nontender. Skin: Skin warm and dry. Normal skin color. Normal skin turgor. No rashes/lesions/lacerations noted. Extremities: No lower extremity edema. No calf tenderness is noted. Extremities exhibit normal range of motion and nontender. Neuro: Oriented X 3. No motor deficit. No sensory deficit. CN's II-XII intact bilaterally? <FREDERIC Davis - Last Filed: 03/26/22 15:45> Course Course Course Narrative: 36-year-old male with past medical history of asthma comes in with shortness of breath and asthma exacerbation secondary to working with chemicals at work. <Opal Gayle NP - Last Filed: 03/26/22 18:28> MDM - Asthma MDM Narrative Medical decision making narrative: This is a 36-year-old male with a past medical history of asthma exacerbation, dyslipidemia, bipolar disorder, coming to the ED complaining of shortness of breath that started Wednesday at work and has not improved after multiple uses of his inhaler. 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 Chest x-ray was negative for PNA and acute cardiopulmonary abnormalities, COVID swab was negative, no fever observed, slight tachycardia at 106 most likely related to albuterol treatment. With patient's presentation and history it is more concerning for an asthma exacerbation. Less concerned for pneumonia, viral infection, PE, or acute coronary syndrome. <Opal Gayle NP - Last Filed: 03/26/22 18:28> This is a 36-year-old male with a past medical history of asthma, dyslipidemia, bipolar disorder, coming to the ED complaining of shortness of breath that started Wednesday at work and has not improved after multiple uses of his inhaler. 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 Chest x-ray was negative for PNA and acute cardiopulmonary abnormalities, COVID swab was negative, no fever observed, slight tachycardia at 106 most likely related to albuterol treatment. With patient's presentation and history it is more concerning for an asthma exacerbation. Less concerned for pneumonia, viral infection, PE, or acute coronary syndrome. <FREDERIC Davis - Last Filed: 03/26/22 15:45> Medical Records Attestation: I reviewed the patient's medical records. <Opal Gayle NP - Last Filed: 03/26/22 18:28> Lab Data Attestation: I reviewed the patient's lab results. <Opal Gayle NP - Last Filed: 03/26/22 18:28> Labs: Lab Results 03/26/22 Range/Units 09:24 COVID-19 (STEPHANI) Negative (Negative) COVID-19 Clin Com See Note <Opal Gayle NP - Last Filed: 03/26/22 18:28> Lab Results 03/26/22 Range/Units 09:24 COVID-19 (STEPHANI) Negative (Negative) COVID-19 Clin Com See Note <FREDERIC Davis - Last Filed: 03/26/22 15:45> Imaging Data Chest x-ray: Attestation: I personally reviewed and interpreted this imaging study as follows: <FREDERIC Davis - Last Filed: 03/26/22 15:45> Radiologist's impression: IMPRESSION: No evidence of pneumonia. No acute cardiopulmonary abnormality compared. <Opal Gayle NP - Last Filed: 03/26/22 18:28> Discharge Plan Discharge Clinical Impression: Asthma with exacerbation <Opal Gayle NP - Last Filed: 03/26/22 18:28> Patient Disposition: Home, Self-Care <Opal Gayle NP - Last Filed: 03/26/22 18:28> Instructions: Asthma (ED) <Opal Gayle NP - Last Filed: 03/26/22 18:28> Additional Instructions: You were seen in the ER on 03/26 for asthma exacerbation. Please take medications as prescribed and return to the emergency department if you have shortness of breath, fever, chills, increased cough, sputum production. Please follow-up with your primary care physician within next 3 days. <Opal Gayle NP - Last Filed: 03/26/22 18:28> Prescriptions: New prednisone 20 mg tablet 40 mg PO DAILY 5 Days Qty: 10 0RF benzonatate 100 mg capsule 100 mg PO BID PRN (Reason: cough) Qty: 14 0RF No Action clonazepam 1 mg Tablet 1 mg PO TID PRN (Reason: Anxiety) zolpidem [Ambien] 10 mg Tablet See Rx Instructions .ROUTE .COMPLEX Rx Instructions: Take 1/2 tab to 1 tab at bedtime PRN ziprasidone HCl 60 mg Capsule 60 mg PO BEDTIME atorvastatin 10 mg tablet 10 mg PO BEDTIME 90 Days Qty: 90 1RF <Opal Gayle NP - Last Filed: 03/26/22 18:28> Referrals: Yue Kay MD [Primary Care Provider] - 3 days <Opal Gayle NP - Last Filed: 03/26/22 18:28> Stand Alone Forms: Work/School Release <Opal Gayle NP - Last Filed: 03/26/22 18:28> Interventions: ED Discharge Assessment Last Done: 03/26/22 12:35 <Opal Gayle NP - Last Filed: 03/26/22 18:28> Discharge Date/Time: 03/26/22 12:36 <Opal Gayle NP - Last Filed: 03/26/22 18:28> Print Language: Lao <Opal Gayle NP - Last Filed: 03/26/22 18:28>
== END 2022-03-26 12:36 | disposition home or self-care (01) ==
PROVIDERS: Emergency Provider Emergency Medicine Emergency Medical Services; PCP Internal Medicine
DX: J45.901 Unspecified asthma with (acute) exacerbation (principal); F17.210 Nicotine dependence, cigarettes, uncomplicated; Z20.822 Contact with and (suspected) exposure to COVID-19
CPT/HCPCS: 71046; 87635; 94640; 99283; 99284

== ENCOUNTER 2022-07-23 12:59 | Emergency (ER) | payer OTHER, SELFPAY ==
--- NOTE | ~2022-07-23 | XR_ITS ---
EXAMINATION: XR CHEST CLINICAL INFORMATION: Shortness of breath and chest pain COMPARISON: 03/26/2022 TECHNIQUE: 2 views of the chest were obtained. FINDINGS: No significant abnormality is noted involving the heart, lungs, mediastinum, bony thorax or soft tissues. XR/XR chest 2V IMPRESSION: Unremarkable examination.
[2022-07-23 13:14] VITALS: BP 138/82; PULSE 114; RESP 16; TEMP 36.8; O2SAT 98; BMI 24.8
--- NOTE | 2022-07-23 13:14 | ED_ITS ---
HPI - SOB/Dyspnea General Chief Complaint: Dyspnea Stated Complaint: difficulty breathing, works with chemicals Time Seen by Provider: 07/23/22 16:09 Source: patient Mode of arrival: ambulatory Limitations: no limitations History of Present Illness HPI Narrative: 36 yo male with history of bipolar, HLD, asthma presents to the ER from his place of employment after he developed acute onset of shortness of breath and chest discomfort after he inhaled some kind of acid that he was working with. He works on [employer] and works with harsh chemicals frequently. He does state that he wears a mask. He reports problem with the filters. He states he was having difficulty breathing after inhaling this agent and was having some chest pain associated with this. He ran out of his albuterol inhaler. He he denies any wheezing but reports some dry cough since the incident. He denies any nausea, vomiting, abdominal pain. The chest pain is midsternal and does not radiate. It is getting better with time. MD elicited complaint: shortness of breath and chest pain Pertinent past history: asthma Onset (ago): hour(s) Context: allergen exposure Timing: constant Severity: moderate Exacerbating factors: coughing Relieving factors: rest Known history of: asthma Associated symptoms: chest pain and cough Treatment prior to arrival: none Related Data Home oxygen amount: none Home Medications Medication Instructions Recorded Confirmed clonazepam 1 mg tablet 1 mg PO TID PRN Anxiety 07/09/20 01/06/22 ziprasidone HCl 60 mg capsule 60 mg PO BEDTIME 07/09/20 01/06/22 zolpidem 10 mg tablet (Ambien) See Rx Instructions .Route .COMPLEX 07/09/20 01/06/22 Previous Rx's Medication Instructions Recorded atorvastatin 10 mg tablet 10 mg PO BEDTIME 90 days #90 tabs 07/09/21 benzonatate 100 mg capsule 100 mg PO BID PRN cough #14 caps 03/26/22 prednisone 20 mg tablet 40 mg PO DAILY 5 days #10 tabs 03/26/22 albuterol sulfate 90 mcg/actuation 1 inh inhalation QID PRN shortness 07/23/22 aerosol inhaler of breath or wheezing #6.7 grams benzonatate 100 mg capsule 100 mg PO TID PRN cough #30 caps 07/23/22 Allergies Allergy/AdvReac Type Severity Reaction Status Date / Time acetaminophen [Tylenol] Allergy Intermediate stomach Verified 07/23/22 13:13 upset, rash ibuprofen [IBUPROFEN] Allergy Intermediate ITCHY Verified 07/23/22 13:13 THROAT Penicillins [PENICILLINS] Allergy Intermediate REDNESS, Verified 07/23/22 13:13 SOB Review of Systems Review of Systems: Yes all other systems are reviewed and are negative [facility] Past Medical History Medical History (Updated 07/23/22 @ 16:07 by FREDERIC Moore) Anxiety Asthma Depression Dyslipidemia Methadone use Physical exam Right knee pain Surgical History No pertinent past surgical history Family History Family History Mother No problems noted. Father No problems noted. Social History Social History Household Members: Spouse and Children Housing: Apartment Alcohol intake: never Patient Tobacco Use Status: Current everyday Tobacco user Tobacco use type: Cigarette Cigarettes Per Day: 4 e-Cigarette/Vaping Use: Never Used Second Hand Smoke Exposure: No Substance Use Type: Crack/Cocaine, Marijuana and Opiates Advance Directives: No service: No Current occupational status: employed Cognitive needs: No Hearing needs: No Vision needs: No Physical Exam Vital Signs: Vital Signs: Last Vital Signs Temp 98.2 F 07/23/22 13:14 Pulse 87 07/23/22 16:14 Resp 16 07/23/22 13:14 BP 138/82 07/23/22 13:14 Pulse Ox 98 07/23/22 13:14 O2 Del Method 07/23/22 13:14 BMI result Body Mass Index 24.8 Appearance: Alert. Oriented X3. Diaphoretic but not in any distress. Eyes: Pupils equal, round and reactive to light. ENT: Pharynx normal. Neck: Normal inspection. Neck supple. CVS: Normal heart rate and rhythm. Pulses normal. Respiratory: No respiratory distress. Breath sounds normal. Dry cough Abdomen: Soft and nontender. +BS x4 Skin: Skin warm and dry. Normal skin color. Normal skin turgor. No rashes. Extremities: No lower extremity edema. Neuro: Oriented X 3. grossly normal, nonfocal Course Course Course Narrative: RME - 36 yo male with history of asthma presents to the ER for evaluation of shortness of breath and chest pain that happened at work while working [employer]. Diaphoretic in triage, lungs are clear, no wheezing. CXR, EKG, and labs ordered. Medical Decision Making Medical Decision Making [facility] Narrative: 36 yo male presenting with SOB and CP after inhaling a chemical at work. No resp distress or hypoxia but tachycardic and anxious on arrival. 16:00 not septic, no infection. likely bronchospasm 2/2 inhalant Differential Diagnosis Differential Diagnoses: The differential diagnosis associated with the presentation includes bronchospasm 2/2 allergen exposure, pneumonitis, PNA, asthma exacerbation, viral syndrome, bronchitis, less likely ACS or PE Lab Data [facility] Lab Attestation statement: I reviewed the patient's lab results. unremarkable, negative troponin, no major metabolic derangement, 07/23/22 13:54 07/23/22 13:54 Labs: Lab Results 07/23/22 07/23/22 07/23/22 Range/Units 13:54 13:54 13:54 WBC 10.1 (4.8-10.8) X10*3/uL RBC 5.16 (4.60-5.80) X10*6/uL Hgb 15.3 (14.0-18.0) g/dl Hct 45.1 (42.0-52.0) % MCV 87.4 (80.0-98.0) fL MCH 29.7 (27.0-33.0) pg MCHC 33.9 (31.0-36.0) g/dl RDW 12.8 (11.0-16.0) % Plt Count 185 (160-400) X10*3/uL MPV 11.5 (9.4-12.4) fL Immature Gran % (Auto) 0.3 (0.0-0.4) % Neut % (Auto) 83.2 H (45-73) % Lymph % (Auto) 8.5 L (20-40) % [place] % (Auto) 7.2 (2-11) % Eos % (Auto) 0.5 (0-4) % Baso % (Auto) 0.3 (0-2) % Lymph # (Auto) 0.9 L (1.2-4.9) X10*3/uL [place] # (Auto) 0.7 (0.1-1.2) X10*3/uL Eos # (Auto) 0.1 (0.0-0.4) X10*3/uL Baso # (Auto) 0.0 (0.0-0.2) X10*3/uL Abs Immat Gran (auto) 0.03 (0.00-0.03) X10*3/uL Absolute Neuts (auto) 8.4 H (2.0-8.3) x10*3/uL Absolute Nucleated RBC 0.000 (0.0-0.012) X10*3/uL Nucleated RBC % (auto) 0.0 (0.0-0.2) /100WBC PT (10.0-13.1) SEC INR (0.9-1.1) APTT (26.0-36.4) SEC Sodium 140 (135-145) mmol/L Potassium 4.0 D (3.3-5.1) mmol/L Chloride 102 (96-108) mmol/L Carbon Dioxide 26 (22-29) mmol/L Anion Gap 16 (12-20) BUN 22 H (9-16) mg/dL Creatinine 1.07 (0.5-1.4) mg/dL Estim Creat Clear Calc 86.1 Estimated GFR > 60 Random Glucose 119 H (60-115) mg/dL Calcium 10.0 (8.4-10.2) mg/dL Magnesium 1.7 (1.6-2.6) mg/dL Total Bilirubin 0.8 (0.0-1.0) mg/dL Direct Bilirubin 0.2 (0.0-0.5) mg/dL AST 32 (5-37) U/L ALT 23 (0-40) U/L Alkaline Phosphatase 80 (39-117) U/L Troponin I High Sens 4.8 (<3.5-35.0) ng/L Total Protein 7.2 (6.5-8.0) g/dL Albumin 4.9 (3.5-5.0) g/dL 07/23/22 Range/Units 13:54 WBC (4.8-10.8) X10*3/uL RBC (4.60-5.80) X10*6/uL Hgb (14.0-18.0) g/dl Hct (42.0-52.0) % MCV (80.0-98.0) fL MCH (27.0-33.0) pg MCHC (31.0-36.0) g/dl RDW (11.0-16.0) % Plt Count (160-400) X10*3/uL MPV (9.4-12.4) fL Immature Gran % (Auto) (0.0-0.4) % Neut % (Auto) (45-73) % Lymph % (Auto) (20-40) % [place] % (Auto) (2-11) % Eos % (Auto) (0-4) % Baso % (Auto) (0-2) % Lymph # (Auto) (1.2-4.9) X10*3/uL [place] # (Auto) (0.1-1.2) X10*3/uL Eos # (Auto) (0.0-0.4) X10*3/uL Baso # (Auto) (0.0-0.2) X10*3/uL Abs Immat Gran (auto) (0.00-0.03) X10*3/uL Absolute Neuts (auto) (2.0-8.3) x10*3/uL Absolute Nucleated RBC (0.0-0.012) X10*3/uL Nucleated RBC % (auto) (0.0-0.2) /100WBC PT 12.9 (10.0-13.1) SEC INR 1.1 (0.9-1.1) APTT 35.9 (26.0-36.4) SEC Sodium (135-145) mmol/L Potassium (3.3-5.1) mmol/L Chloride (96-108) mmol/L Carbon Dioxide (22-29) mmol/L Anion Gap (12-20) BUN (9-16) mg/dL Creatinine (0.5-1.4) mg/dL Estim Creat Clear Calc Estimated GFR Random Glucose (60-115) mg/dL Calcium (8.4-10.2) mg/dL Magnesium (1.6-2.6) mg/dL Total Bilirubin (0.0-1.0) mg/dL Direct Bilirubin (0.0-0.5) mg/dL AST (5-37) U/L ALT (0-40) U/L Alkaline Phosphatase (39-117) U/L Troponin I High Sens (<3.5-35.0) ng/L Total Protein (6.5-8.0) g/dL Albumin (3.5-5.0) g/dL Independent Interpretation I performed an independent interpretation of an: EKG and Plain X-Ray Interpretation: cxr clear, no PNA, no PTX ekg with sinus tachycardia, HR 104 bpm, normal QTC, high amp QRS in precordial leads. no st segment elevation or depression Radiology Impression Discussion of test interpretation with radiology: I have reviewed the radiologist's reading. Radiologist Impression: XR/XR chest 2V IMPRESSION: Unremarkable examination. Critical Care Time Critical Care Time Critical Care Time: No Discharge Plan Discharge Clinical Impression: Shortness of breath Patient Disposition: Home, Self-Care Instructions: Shortness of Breath (ED) Additional Instructions: Your lab workup was unremarkable. Your EKG did not show any evidence of strain on her heart. Your x-ray was normal. Recommend following with her primary care doctor. Use the prescribed inhaler as needed for shortness of breath and wheezing. Wear mask when around chemicals. If you develop new or worsening symptoms call 911 or come back to the ER for further evaluation. Prescriptions: New albuterol sulfate 90 mcg/actuation HFA aerosol inhaler 1 inh inhalation QID PRN (Reason: shortness of breath or wheezing) Qty: 6.7 0RF benzonatate 100 mg capsule 100 mg PO TID PRN (Reason: cough) Qty: 30 0RF No Action clonazepam 1 mg Tablet 1 mg PO TID PRN (Reason: Anxiety) zolpidem [Ambien] 10 mg Tablet See Rx Instructions .ROUTE .COMPLEX Rx Instructions: Take 1/2 tab to 1 tab at bedtime PRN ziprasidone HCl 60 mg Capsule 60 mg PO BEDTIME prednisone 20 mg tablet 40 mg PO DAILY 5 Days Qty: 10 0RF benzonatate 100 mg capsule 100 mg PO BID PRN (Reason: cough) Qty: 14 0RF atorvastatin 10 mg tablet 10 mg PO BEDTIME 90 Days Qty: 90 1RF Referrals: Yue Kay MD [Primary Care Provider] - Stand Alone Forms: Work/School Release Discharge Date/Time: 07/23/22 16:15
--- NOTE | 2022-07-23 13:18 | ECG_ITS ---
Test Reason : cp Blood Pressure : / mmHG Vent. Rate : 104 BPM Atrial Rate : 104 BPM P-R Int : 128 ms QRS Dur : 086 ms QT Int : 344 ms P-R-T Axes : 077 077 068 degrees QTc Int : 452 ms Sinus tachycardia Otherwise normal ECG When compared with ECG of 03-JAN-2021 10:58, No significant change was found Referred By: Opal Clancy Electronically Signed By:Lm Swan
[2022-07-23 14:03] LABS: MANUAL DIFF FLAG NO
[2022-07-23 14:05] LABS: Basophils Percent Auto 0.3 % (0-2); Eosinophils Absolute Auto 0.1 X10*3/uL (0.0-0.4); Eosinophils Percent Auto 0.5 % (0-4); Hematocrit 45.1 % (42.0-52.0); Hemoglobin 15.3 g/dl (14.0-18.0); Imm Gran Abs Auto 0.03 X10*3/uL (0.00-0.03); Imm Gran Pct Auto 0.3 % (0.0-0.4); Lymphocytes Absolute Auto 0.9 X10*3/uL (1.2-4.9); Lymphocytes Percent Auto 8.5 % (20-40); Mean Corpuscular HGB Conc 33.9 g/dl (31.0-36.0); Mean Corpuscular Hemoglobin 29.7 pg (27.0-33.0); Mean Corpuscular Volume 87.4 fL (80.0-98.0); Mean Platelet Volume 11.5 fL (9.4-12.4); Monocytes Absolute Auto 0.7 X10*3/uL (0.1-1.2); Monocytes Percent Auto 7.2 % (2-11); Neutrophils Absolute Auto 8.4 x10*3/uL (2.0-8.3); Neutrophils Percent Auto 83.2 % (45-73); Platelet Count 185 X10*3/uL (160-400); Red Blood Count 5.16 X10*6/uL (4.60-5.80); Red Cell Distribution Width 12.8 % (11.0-16.0); White Blood Count 10.1 X10*3/uL (4.8-10.8)
[2022-07-23 14:11] LABS: INTERNATIONAL NORM RATIO 1.1 (0.9-1.1); Prothrombin Time 12.9 SEC (10.0-13.1)
[2022-07-23 14:13] LABS: Partial Thromboplastin Time 35.9 SEC (26.0-36.4)
[2022-07-23 14:21] LABS: Alanine Aminotransferase 23 U/L (0-40); Albumin Level 4.9 g/dL (3.5-5.0); Alkaline Phosphatase 80 U/L (39-117); Anion Gap 16 (12-20); Aspartate Amino Transferase 32 U/L (5-37); Bilirubin Direct 0.2 mg/dL (0.0-0.5); Bilirubin Total 0.8 mg/dL (0.0-1.0); Blood Urea Nitrogen 22 mg/dL (9-16); Carbon Dioxide 26 mmol/L (22-29); Chloride 102 mmol/L (96-108); Creatinine Clr Calc Pharmacy 86.1; Estimated Glomerular Filt Rate > 60; Glucose Random 119 mg/dL (60-115); Magnesium 1.7 mg/dL (1.6-2.6); Sodium 140 mmol/L (135-145); Total Protein 7.2 g/dL (6.5-8.0)
[2022-07-23 14:29] LABS: Troponin-I High Sensitivity 4.8 ng/L (<3.5-35.0)
[2022-07-23 16:14] VITALS: PULSE 87
== END 2022-07-23 16:15 | disposition home or self-care (01) ==
PROVIDERS: Physician Assistant; Emergency Provider Emergency Medicine; PCP Internal Medicine
DX: R06.02 Shortness of breath (principal); R00.0 Tachycardia, unspecified; F41.9 Anxiety disorder, unspecified; E78.5 Hyperlipidemia, unspecified; J45.909 Unspecified asthma, uncomplicated; F17.210 Nicotine dependence, cigarettes, uncomplicated; F12.90 Cannabis use, unspecified, uncomplicated; Z79.02 Long term (current) use of antithrombotics/antiplatelets; Z79.899 Other long term (current) drug therapy
CPT/HCPCS: 36415; 71046; 80048; 80076; 83735; 84484; 85025; 85610; 85730; 93005; 99283

== ENCOUNTER 2022-08-27 08:50 | Emergency (ER) | payer OTHER, SELFPAY ==
[2022-08-27 09:04] VITALS: BP 103/58; PULSE 86; RESP 16; TEMP 36.5; O2SAT 98; BMI 26.6
[2022-08-27 09:36] LABS: COVID-19 Test Negative (Negative); IDNOW Serial# 16C4AD1C
[2022-08-27 09:39] LABS: IDNOW Serial# 6674DD1D; Strep A Nucleic Acid Negative (Negative)
--- NOTE | 2022-08-27 10:09 | ED.GENADULT ---
HPI - General Adult General Chief complaint: Upper Respiratory Symptoms Stated complaint: Congestion/Sore throat/Headache Time Seen by Provider: 08/27/22 09:59 Source: patient and RN notes reviewed Mode of arrival: ambulatory Limitations: no limitations History of Present Illness HPI narrative: 36-year-old male with past medical history significant for bipolar disorder, hyperlipidemia presents for evaluation of congestion, headache. He reports the symptoms started 2 days ago. He reports a pressure behind my eyes. ? denies any actual eye pain or visual changes. Patient reports that he works with numerous chemicals and is constantly wearing PPE such as a respirator which makes it difficult to breathe with his congestion He denies any fevers, shortness of breath He rates the discomfort as 4/10 Denies any sick contacts. The patient is a smoker Related Data Home Medications Medication Instructions Recorded Confirmed clonazepam 1 mg tablet 1 mg PO TID PRN Anxiety 07/09/20 01/06/22 ziprasidone HCl 60 mg capsule 60 mg PO BEDTIME 07/09/20 01/06/22 zolpidem 10 mg tablet (Ambien) See Rx Instructions .Route .COMPLEX 07/09/20 01/06/22 Previous Rx's Medication Instructions Recorded atorvastatin 10 mg tablet 10 mg PO BEDTIME 90 days #90 tabs 07/09/21 benzonatate 100 mg capsule 100 mg PO BID PRN cough #14 caps 03/26/22 prednisone 20 mg tablet 40 mg PO DAILY 5 days #10 tabs 03/26/22 albuterol sulfate 90 mcg/actuation 1 inh inhalation QID PRN shortness 07/23/22 aerosol inhaler of breath or wheezing #6.7 grams benzonatate 100 mg capsule 100 mg PO TID PRN cough #30 caps 07/23/22 Allergies Allergy/AdvReac Type Severity Reaction Status Date / Time acetaminophen [Tylenol] Allergy Intermediate stomach Verified 07/23/22 13:13 upset, rash ibuprofen [IBUPROFEN] Allergy Intermediate ITCHY Verified 07/23/22 13:13 THROAT Penicillins [PENICILLINS] Allergy Intermediate REDNESS, Verified 07/23/22 13:13 SOB Review of Systems Constitutional: Constitutional: Reports as per HPI, Denies chills, Denies fatigue and Reports headache(s) ENT: Reports headache(s), Reports nasal congestion and Denies sore throat Cardiovascular: Cardiovascular: Denies chest pain and Denies dyspnea Respiratory: Respiratory: Denies dyspnea Gastrointestinal: Gastrointestinal: Denies abdominal pain, Denies constipation and Denies vomiting Genitourinary: Genitourinary: Denies difficulty urinating and Denies dysuria Neurologic: Reports headache(s) Endocrine: Endocrine: Denies fatigue PMFSH Past Medical History Medical History (Updated 08/27/22 @ 10:14 by Chetan Hoover) Anxiety Asthma Depression Dyslipidemia Methadone use Physical exam Right knee pain Surgical History No pertinent past surgical history Family History Family History Mother No problems noted. Father No problems noted. Social History Social History Household Members: Spouse and Children Housing: Apartment Alcohol intake: never Patient Tobacco Use Status: Current everyday Tobacco user Tobacco use type: Cigarette Cigarettes Per Day: 4 e-Cigarette/Vaping Use: Never Used Second Hand Smoke Exposure: No Substance Use Type: Crack/Cocaine, Marijuana and Opiates Advance Directives: No Advance Directives Information Provided: Yes service: No Current occupational status: employed Cognitive needs: No Hearing needs: No Vision needs: No Physical Exam ED Vital Signs: Vital Signs - 24 hr 08/27/22 09:04 Temperature 97.7 F Pulse Rate 86 Respiratory Rate 16 Blood Pressure 103/58 L Pulse Oximetry 98 Oxygen Delivery Method Room Air BMI result Body Mass Index 26.6 Const General: healthy appearing, comfortable, no acute distress, alert and awake Nutritional Appearance: well nourished Orientation/consciousness: patient oriented x3 HENMT Head: Yes normocephalic and Yes atraumatic Ears: external ears normal and TM's normal bilaterally Face and sinus: No sinuses nontender, No edema and Yes sinus tenderness Eyes Eyelids: Yes eyelids normal Conjunctivae: conjunctivae normal Sclerae: sclerae normal Corneas: corneas normal Pupils: Equal, round and reactive pupils present EOM: EOMs intact bilaterally Resp Effort & Inspection: normal respiratory effort, able to speak in complete sentences, no audible wheezes and not labored Skin General skin exam: no rashes or lesions noted and elasticity normal Lesions: no lesions Rashes: no rashes Neuro General: patient oriented x3 Cranial nerves: Yes Equal, round and reactive pupils present Extrem General: Yes full ROM Medical Decision Making Medical Decision Making MDM Narrative: Patient is well-appearing, he is a young, healthy male with stable vital signs. He has congestion, postnasal drip, facial pressure consistent with upper respiratory infection. Discussed symptomatic care with the patient. He will follow-up with his primary doctor Differential Diagnosis Comparisons Upper respiratory infection Sinusitis Pharyngitis Bronchitis Influenza Lab Data Labs: Lab Results 08/27/22 08/27/22 Range/Units 09:08 09:08 COVID-19 (STEPHANI) Negative (Negative) COVID-19 Clin Com See Note S. pyogenes GrpA SELENA Negative (Negative) Discharge Plan Discharge Clinical Impression: Acute upper respiratory infection Patient Disposition: Home, Self-Care Instructions: Upper Respiratory Infection (ED) Additional Instructions: Your symptoms are likely related to an upper respiratory infection. Use Motrin or Tylenol for headache, discomfort. 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 [id number] to help with any facial pressure and congestion Follow-up with your primary doctor Prescriptions: No Action clonazepam 1 mg Tablet 1 mg PO TID PRN (Reason: Anxiety) zolpidem [Ambien] 10 mg Tablet See Rx Instructions .ROUTE .COMPLEX Rx Instructions: Take 1/2 tab to 1 tab at bedtime PRN ziprasidone HCl 60 mg Capsule 60 mg PO BEDTIME prednisone 20 mg tablet 40 mg PO DAILY 5 Days Qty: 10 0RF benzonatate 100 mg capsule 100 mg PO BID PRN (Reason: cough) Qty: 14 0RF albuterol sulfate 90 mcg/actuation HFA aerosol inhaler 1 inh inhalation QID PRN (Reason: shortness of breath or wheezing) Qty: 6.7 0RF benzonatate 100 mg capsule 100 mg PO TID PRN (Reason: cough) Qty: 30 0RF atorvastatin 10 mg tablet 10 mg PO BEDTIME 90 Days Qty: 90 1RF Stand Alone Forms: Work/School Release
== END 2022-08-27 10:19 | disposition home or self-care (01) ==
PROVIDERS: Emergency Provider Emergency Medicine Emergency Medical Services; PCP Internal Medicine
DX: J06.9 Acute upper respiratory infection, unspecified (principal); Z20.822 Contact with and (suspected) exposure to COVID-19; Z20.828 Contact with and (suspected) exposure to other viral communicable diseases; Z79.899 Other long term (current) drug therapy
CPT/HCPCS: 87635; 87651; 99282; 99283

== ENCOUNTER 2024-04-05 15:52 | Outpatient (AMB) | payer OTHER, SELFPAY ==
--- NOTE | 2024-04-05 15:57 | MHC.PC.OV ---
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 Accompanied by: Self / Same As Patient Allergies acetaminophen [Tylenol] Allergy (Intermediate, Verified 04/05/24 16:08) stomach upset, rash ibuprofen [IBUPROFEN] Allergy (Intermediate, Verified 04/05/24 16:08) ITCHY THROAT Penicillins [PENICILLINS] Allergy (Intermediate, Verified 04/05/24 16:08) REDNESS, SOB Medication List - Last Reconciled 04/05/24 by Yue Parrish MD buprenorphine-naloxone 8-2 mg (Suboxone) 1 film sublingual BID Tobacco use date assessed: 04/05/24 Dental Screening Dental Screen Date: 04/05/24 Did you have a dental visit in the last 12 months?: No Did you have a dental problem in the last 6 months where you did not have access to dental care?: No Was dental information given to patient?: Patient has dentist HPI HPI Comments History of Present Illness Details This is a 38-year-old male that comes for his physical exam. 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 Doing well on Suboxone. He does have unintentional weight loss. He also wants to be screened for STDs. He also has excessive wax in left ear. [facility] Medical History (Updated 04/05/24 @ 16:21 by Yue Parrish MD) Physical exam Right knee pain Dyslipidemia Methadone use Asthma Depression Anxiety Surgical History No pertinent past surgical history Family History Mother No problems noted. Father No problems noted. Social History Household Members: Spouse and Children Housing: Apartment Alcohol intake: never Patient Tobacco Use Status: Current someday Tobacco user Tobacco use type: Cigarette Cigarettes Per Day: 1 e-Cigarette/Vaping Use: Never Used Second Hand Smoke Exposure: No Substance Use Type: Crack/Cocaine, Marijuana and Opiates service: No Current occupational status: employed Current occupational exposures/hazards: No Cognitive needs: No Hearing needs: No Vision needs: No Questionnaire PHQ-9 Over the last 2 weeks, how often have you been bothered by any of the following problems? 1. Little interest or pleasure in doing things: not at all 2. Feeling down, depressed, or hopeless: not at all 3. Trouble falling or staying asleep, or sleeping too much: several days 4. Feeling tired or having little energy: several days 5. Poor appetite or overeating: more than half the days 6. Feeling bad about yourself - or that you are a failure or have let yourself or your family down: not at all 7. Trouble concentrating on things, such as reading the newspaper or watching television: not at all 8. Moving or speaking so slowly that other people could have noticed. Or the opposite - being so fidgety or restless that you have been moving around a lot more than usual: not at all 9. Thoughts that you would be better off or of hurting yourself in some way: not at all Total score: 4 Depression Screening Interpretation: Positive Depression Screening Follow-up: Existing condition, Community Mental Health Worker F/U and Follow-up Visit Requested Depression Screening Done: Yes 94173 - PHQ-9 Billing: Yes Source: Developed by Drs. Altaf Nunez, Bella García, Deon Elizondo and colleagues, with an educational geraldo from [employer]. Thrive Questionnaire Date Thrive assessed: 04/05/24 I am a: Patient What is your living situation today?: I have a steady place to live Within the past 12 months, did the food you bought not last and you didn't have the money to get more?: Never true Within the past 12 months, did you worry whether your food would run out before you got money to buy more?: Never true Do you have trouble paying for medicines?: No Do you have trouble getting transportation to medical appointments?: No Do you have trouble paying your heating and electricity bill?: No Do you have trouble taking care of your child, family member or friend?: No Do you have trouble with day-to-day activities such as bathing, preparing meals, shopping, managing finances, etc.?: No Are you currently unemployed and looking for a job?: No Are you interested in more education?: No Please select the resources that you would like help with: None Currently or been in a relationship where the following occur: No concerns reported THRIVE Score: 0 AUDIT C Alcohol Use Questionnaire (AUDIT-C) 1. How often do you have a drink containing alcohol?: Never Total Score: 0 Score Reviewed/Action Taken: No IZA-7 AMB Questionnaire IZA-7 Date IZA - 7 assessed: 04/05/24 Feeling nervous, anxious, or on edge: 1 = Several days Not being able to stop or control worryin = Not at all Worrying too much about different things: 1 = Several days Trouble relaxin = Several days Being so restless that it is hard to sit still: 0 = Not at all Becoming easily annoyed or irritable: 1 = Several days Feeling afraid as if something awful might happen: 0 = Not at all Total IZA-7 score (0-4 normal; 5-9 mild; 10-14 moderate; 15-21 severe): 4 Source: Developed by Drs. Altaf Nunez, Bella García, Deon Elizondo and colleagues, with an educational geraldo from [employer]. IZA-7 Assessment Billing IZA-7 Assessment Tool: IZA-7 Assessment 54326 Review of Systems Const All systems reviewed & are unremarkable except as noted in HPI and below Card Denies chest pain at rest, Denies chest pain with activity, Denies edema, Denies irregular heart rhythm, Denies claudication, Denies dyspnea, Denies dyspnea on exertion, Denies orthopnea, Denies paroxysmal nocturnal dyspnea and Denies slow heart rate Resp Denies cough, Denies dyspnea and Denies dyspnea on exertion Physical exam (Primary Care) Vital Signs: Last Vital Signs BP 120/70 04/05/24 15:59 BMI result Body Mass Index 23.2 Tobacco/Smoking Status: Tobacco use Status Tobacco use date assessed 04/05/24 04/05/24 16:04 Patient Tobacco Use Status Current someday Tobacco 04/05/24 16:04 Tobacco use type Cigarette 04/05/24 15:59 e-Cigarette/Vaping Use Never Used 04/05/24 15:59 PHQ-9: PHQ-9 Score PHQ-9: Total score 4 04/05/24 16:20 Depression Screening Interpretation: Positive Depression Screening Follow-up: Existing condition, Community Mental Health Worker F/U and Follow-up Visit Requested Thrive Assessment: Date of Thrive Assessment Date Thrive assessed 04/05/24 04/05/24 16:04 Currently or been in a relationship where the following occur: No concerns reported Eyes General: appearance normal, both eyes and all related structures Eyelids: Yes eyelids normal Conjunctivae: conjunctivae normal Neck Neck: Yes normal visual inspection and Yes supple Resp Effort & Inspection: normal respiratory effort Auscultation: clear to auscultation bilaterally Cardio Jugular venous distension: no JVD Rate: regular rate Rhythm: regular rhythm Heart sounds: S1 normal heart sound present and S2 normal heart sound present GI Inspection: Yes normal to inspection Palpation (GI): Soft to palpation and nontender Auscultation: normal bowel sounds Skin General skin exam: no rashes or lesions noted Neuro General: no focal motor deficits Extrem General: Yes full ROM Psych Appearance: grossly normal Office Procedures Flu Questionnaire Does the patient have a severe egg allergy?: No Immunizations Fluarix Triv [id number] (PF) 45 mcg (15 mcg x 3)/0.5 mL IM syringe Performing Provider: Yue Parrish MD [facility] [place] [facility] Documented (not given) by: DILCIA Morin on 04/05/24 16:04 Reason Not Given: Patient Refused Coding Level of Care Code Est Pt Level 3 (53535) Est Pt Prev Care 18-39y(76127) Diagnoses Physical exam Z00.00 Opioid dependence on agonist therapy F11.20 Excessive cerumen in right ear canal H61.21 Unintentional weight loss R63.4 Additional Codes IZA-7 Assessment Billing - IZA-7 Assessment Tool: IZA-7 Assessment 49834 ([id number]) Assessment & Plan Assessment & Plan (1) Physical exam: Code(s): Z00.00 - Encounter for general adult medical examination without abnormal findings Category: Medical Plan: Repeat in a year. (2) Opioid dependence on agonist therapy: Code(s): F11.20 - Opioid dependence, uncomplicated Category: Medical Plan: Continue Suboxone. (3) Excessive cerumen in right ear canal: Code(s): H61.21 - Impacted cerumen, right ear Category: Medical Plan: Start Debrox (4) Unintentional weight loss: Code(s): R63.4 - Abnormal weight loss Category: Medical Plan: Labs ordered. Orders: Orders ECG 12 lead EKG Today F11.20 - Opioid dependence, uncomplicated Comprehensive [place]. Panel Fast Today R63.4 - Abnormal weight loss Syphilis Screen Today Z11.3 - Encounter for screening for infections with a predominantly sexual mode of transmission Influenza [id number] Immunization Today Z23 - Encounter for immunization Lipid Panel Today E78.5 - Hyperlipidemia, unspecified HIV Ab/Ag Today R63.4 - Abnormal weight loss Thyroid Stimulating Hormone Today R63.4 - Abnormal weight loss Complete Blood Count Auto Diff Today R63.4 - Abnormal weight loss CT NG by PCR Today Z11.3 - Encounter for screening for infections with a predominantly sexual mode of transmission Hepatitis C Antibody Today Z11.3 - Encounter for screening for infections with a predominantly sexual mode of transmission Medications: New carbamide peroxide 6.5% (Debrox) 5 drps otic (ear) right DAILY 15 mL 0RF 4 days H61.21 - Impacted cerumen, right ear
[2024-04-05 15:59] VITALS: BP 120/70; BMI 23.2
== END 2024-04-05 16:24 | disposition home or self-care (01) ==
PROVIDERS: PCP Internal Medicine; Visit Provider Internal Medicine
DX: Z00.00 Encounter for general adult medical examination without abnormal findings (principal); F11.20 Opioid dependence, uncomplicated; H61.21 Impacted cerumen, right ear; R63.4 Abnormal weight loss

== ENCOUNTER → 2024-04-05 15:52 | Outpatient (BNVA) | payer OTHER, SELFPAY | PROVIDERS: PCP Internal Medicine; Visit Provider Internal Medicine | DX: Z00.01 Encounter for general adult medical examination with abnormal findings (principal); F11.20 Opioid dependence, uncomplicated; H61.21 Impacted cerumen, right ear; R63.4 Abnormal weight loss | CPT/HCPCS: 90471; 96127; 99212; 99395 ==

== ENCOUNTER 2025-01-23 11:11 | Emergency (ER) | payer OTHER, SELFPAY ==
[2025-01-23 11:18] VITALS: BP 113/72; PULSE 95; RESP 16; TEMP 36.4; O2SAT 98; BMI 24.1
--- NOTE | 2025-01-23 11:22 | ED.BACK ---
HPI - Back Pain/Injury General Chief Complaint: Back Pain/Injury Stated Complaint: Work injury 01/22 Time Seen by Provider: 01/23/25 11:22 Source: patient Mode of arrival: ambulatory Limitations: no limitations History of Present Illness ED Provider: Otis Clancy PA-C HPI Narrative: 39 yo male presents to the ER for evaluation of right middle/lower back pain that started yesterday after heavy lifting at work. He states the pain is worse when he twists, lifts, walks, located only on the right side and intermittently radiates to his buttock when he walks. He states he is no longer able to go to work and do his job, considered is primarily heavy lifting. 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 He denies any weakness, numbness in the lower extremity. No difficulty urinating or moving his bowels. No urinary retention. No fever or chills. No history of IVDA. No midline back pain. No history of chronic back pain in the past. He has not yet taken any medications for the pain MD elicited complaint: back injury Onset (ago): day(s) (1) Timing: constant Severity: moderate Similar Symptoms Previously: No Quality: aching and spasming Location: right lower back and right upper back Radiation: buttocks Exacerbating factors: movement, walking and lifting Relieving factors: sitting upright Context: while lifting Associated symptoms: denies other symptoms Work related injury: Yes Related Data Home Medications ?Medication ?Instructions ?Recorded ?Confirmed buprenorphine 8 mg-naloxone 2 mg 1 film sublingual BID 04/05/24 04/05/24 sublingual film (Suboxone) Previous Rx's ?Medication ?Instructions ?Recorded carbamide peroxide 6.5 % ear drops 5 drp otic (ear) right DAILY 4 04/26/24 (Debrox) days #15 mL cyclobenzaprine 10 mg tablet 10 mg PO TID PRN muscle spasm #14 01/23/25 tabs lidocaine 5 % topical patch 1 patch topical DAILY #15 ea 01/23/25 Allergies Allergy/AdvReac Type Severity Reaction Status Date / Time acetaminophen (Tylenol) Allergy Intermediate stomach Verified 01/23/25 11:21 upset, rash ibuprofen (IBUPROFEN) Allergy Intermediate ITCHY Verified 01/23/25 11:21 THROAT Penicillins (PENICILLINS) Allergy Intermediate REDNESS, Verified 01/23/25 11:21 SOB Review of Systems Review of Systems: Yes all other systems are reviewed and are negative [facility] Past Medical History Medical History Physical exam Right knee pain Dyslipidemia Methadone use Asthma Depression Anxiety Surgical History No pertinent past surgical history Family History Family History Mother No problems noted. Father No problems noted. Social History Social History Household Members: Spouse and Children Housing: Apartment Alcohol intake: never Patient Tobacco Use Status: Current someday Tobacco user Tobacco use type: Cigarette Cigarettes Per Day: 1 e-Cigarette/Vaping Use: Never Used Second Hand Smoke Exposure: No Substance Use Type: Crack/Cocaine, Marijuana and Opiates Advance Directives: No Advance Directives Information Provided: Yes service: No Current occupational status: employed Current occupational exposures/hazards: No Cognitive needs: No Hearing needs: No Vision needs: No Physical Exam Exam: Exam: Appearance: Alert. Oriented X3. No acute distress. HEENT: normal external inspection Neck: Normal inspection. CVS: Normal heart rate and rhythm. Respiratory: No respiratory distress. Breath sounds normal. Back: normal inspection, no midline tenderness of the thoracic or lumbar vertebrae, +soft tissue tenderness w/ palpable muscle spasm in the right lower thoracic and upper lumbar areas Skin: Skin warm and dry. Normal skin color. Normal skin turgor. No rashes. Extremities: No lower extremity edema. No joint swelling. Neuro/psych: Oriented X 3. Steady gait. Normal speech and cognition. Vital Signs: Vital Signs: Last Vital Signs Temp 97.6 F 01/23/25 11:18 Pulse 95 01/23/25 11:18 Resp 16 01/23/25 11:18 BP 113/72 01/23/25 11:18 Pulse Ox 98 01/23/25 11:18 O2 Del Method Room Air 01/23/25 11:18 BMI result Body Mass Index 24.1 Medical Decision Making Medical Decision Making MDM Narrative: 39-year-old male presents to the ER for evaluation of right middle and lower back pain that started yesterday after heavy lifting at work. No falls or other trauma. No red flag symptoms of low back pain. On examination he has soft tissue tenderness and palpable spasm of the paraspinous muscles on the right side. His symptoms most likely due to muscle strain and spasm. No role for imaging today. Will start on muscle relaxers, Lidoderm, Tylenol. He has an allergy to NSAIDs. We discussed other symptomatic and supportive care measures with ice, heat, follow-up with PCP and/or were connection to be cleared to return to work as he is mostly doing heavy lifting at work. Stable for discharge home. Patient agrees with plan all questions were answered. Differential Diagnosis Differential Diagnoses: The differential diagnosis associated with the presentation includes Inflammatory disorders, malignancy, trauma, osteoporosis, nerve root compression, radiculopathy, plexopathy, degenerative disc disease, disc herniation, spinal stenosis, sacroiliac joint dysfunction, facet joint injury, and less likely infection?like abscess or diskitis External Record Review External record reviewed: Prior outpatient labs Tests considered The following testing was considered but not selected: considered xray lumbar spine Prescription Management I considered prescription management with: Pain Medication Chronic Conditions Patient?s care impacted by: Other (chronic ) Critical Care Time Critical Care Time Critical Care Time: No Discharge Plan Discharge Clinical Impression: Strain of lumbar region Qualifiers: Encounter type: initial encounter Qualified Code(s): S39.012A - Strain of muscle, fascia and tendon of lower back, initial encounter Patient Disposition: Home, Self-Care Instructions: Low Back Strain (ED), Lower Back Exercises (ED) Additional Instructions: Your pain is most likely due to muscle strain and spasm. No bending, lifting or twisting. Use ice several times per day for 20 minutes at a time for the next 48 hours and then change to heat. Take medications as prescribed to help with pain and discomfort. Follow up with your Primary Care Doctor this week. If your pain worsens, if you develop new numbness, tingling, weakness, loss of function or incontinence call 911 or come back to the ER right away for evaluation. Prescriptions: New cyclobenzaprine 10 mg tablet 10 mg PO TID PRN (Reason: muscle spasm) Qty: 14 0RF lidocaine 5 % adhesive patch,medicated 1 patch topical DAILY Qty: 15 0RF Rx Instructions: leave on most painful area for up to 12 hrs No Action Debrox 6.5 % drops 5 drp otic (ear) right DAILY 4 Days Qty: 15 0RF buprenorphine-naloxone [Suboxone] 8-2 mg film 1 film sublingual BID Referrals: Work Connection [Outside] Yue Kay MD [Primary Care Provider, Internal Medicine] Stand Alone Forms: Work/School Release Discharge Date/Time: 01/23/25 11:37 Print Language: [place]
--- OUTSIDE RECORDS SUMMARY | 2025-01-23 12:19 | XMS_ITS | Clinical Summary ---
Author Organization [employer] Address [address] [place] [address] Care Team Providers Care Sales Order Coordinator Name Role Phone Unavailable Primary Care Provider Unavailabl e Social History Tobacco Use Types Packs/Day Years Used Date Smoking Tobacco: Never Assessed Sex and Gender Information Value Date Recorded Sex Assigned at Male 04/20/2022 10:14 AM EDT Legal Sex Male 10:14 AM EDT Gender Identity Choose not to disclose 10:14 AM EDT Sexual Orientation Choose not to disclose 2021 10:14 AM EDT Plan of Treatment Health Maintenance Due Date Last Done Comments Depression Screening 1985 HIV Screening 1985 Lipid Panel 1985 SDOH Screening 1985 Disability Screening 1985 Alcohol/Substance Use Screening 1997 Tobacco Screening 1997 Family Planning (PISQ) 2000 HPV Vaccines (1 - 3-dose series) 2000 Hepatitis C Screening 10/05/2003 Hepatitis B Vaccines (1 of 3 - 19+ 3-dose series) 2004 COVID-19 Vaccine ( - 2023-2 5 season) 2024 Influenza Vaccine (#1) 2025 DTaP/Tdap/Td Vaccines (2 - T d or Tdap) 10/28/2025 10/29/2015, 10/29/2015 Zoster Vaccines (1 of 2) 10/05/2035 RSV Patients and Patients Aged 60 years or older (1 - 1-dose 75+ series) 2060 HIB Vaccines Aged Out No longer eligi ble based on patient's age to complete this topic Hepatitis A Vaccines Aged Out No long er eligible based on patient's age to complete this topic IPV Vaccines Aged Out No longer eligi ble based on patient's age to complete this topic Meningococcal B Vaccine Aged Out No l onger eligible based on patient's age to complete this topic Meningococcal Vaccine Aged Out No igor austyn eligible based on patient's age to complete this topic Pneumococcal Vaccine: Pediatrics (0 to 5 Years) and At-Risk Patients (6 to 49) Years Aged Out No longer eligible b ased on patient's age to complete this topic RSV under 20 months Aged Out No longe r eligible based on patient's age to complete this topic Rotavirus Vaccines Aged Out No longer eligible based on patient's age to complete this topic
== END 2025-01-23 11:37 | disposition home or self-care (01) ==
PROVIDERS: Emergency Provider Emergency Medicine; PCP Internal Medicine
DX: S39.012A Strain of muscle, fascia and tendon of lower back, initial encounter (principal); X50.0XXA Overexertion from strenuous movement or load, initial encounter; X50.9XXA Other and unspecified overexertion or strenuous movements or postures, initial encounter; Y93.89 Activity, other specified; Y92.59 Other trade areas as the place of occurrence of the external cause; Y99.8 Other external cause status
CPT/HCPCS: 99281; 99283

== ENCOUNTER 2025-01-26 11:29 | Outpatient (AMB) | payer OTHER, SELFPAY ==
--- NOTE | 2025-01-26 11:31 | MHC.PC.OV ---
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 Accompanied by: Self / Same As Patient Allergies ibuprofen (IBUPROFEN) Allergy (Intermediate, Verified 01/26/25 11:32) ITCHY THROAT Penicillins (PENICILLINS) Allergy (Intermediate, Verified 01/26/25 11:32) REDNESS, SOB Tobacco use date assessed: 01/26/25 Dental Screening Dental Screen Date: 01/26/25 Did you have a dental visit in the last 12 months?: No Did you have a dental problem in the last 6 months where you did not have access to dental care?: No Was dental information given to patient?: No HPI HPI Comments History of Present Illness Details 39 y/o Male patient who presents to the clinic today for EDF. He was admitted [place] [facility] [place] for an evaluation and treatment of Lower back pain. Pt injured himself at work while lifting heavy boxes. Today reports Feeling much better and pain has subsided. [facility] Medical History Physical exam Right knee pain Dyslipidemia Methadone use Asthma Depression Anxiety Surgical History No pertinent past surgical history Family History Mother No problems noted. Father No problems noted. Social History Household Members: Spouse and Children Housing: Apartment Alcohol intake: never Patient Tobacco Use Status: Current someday Tobacco user Tobacco use type: Cigarette Cigarettes Per Day: 1 e-Cigarette/Vaping Use: Never Used Second Hand Smoke Exposure: No Substance Use Type: Crack/Cocaine, Marijuana and Opiates service: No Current occupational status: employed Current occupational exposures/hazards: No Cognitive needs: No Hearing needs: No Vision needs: No Questionnaire PHQ-9 Over the last 2 weeks, how often have you been bothered by any of the following problems? 1. Little interest or pleasure in doing things: not at all 2. Feeling down, depressed, or hopeless: not at all 3. Trouble falling or staying asleep, or sleeping too much: not at all 4. Feeling tired or having little energy: not at all 5. Poor appetite or overeating: nearly every day 6. Feeling bad about yourself - or that you are a failure or have let yourself or your family down: not at all 7. Trouble concentrating on things, such as reading the newspaper or watching television: not at all 8. Moving or speaking so slowly that other people could have noticed. Or the opposite - being so fidgety or restless that you have been moving around a lot more than usual: not at all 9. Thoughts that you would be better off or of hurting yourself in some way: not at all Total score: 3 24259 - PHQ-9 Billing: Yes Source: Developed by Drs. Altaf Nunez, Bella García, Deon Elizondo and colleagues, with an educational geraldo from [employer]. Thrive Questionnaire Date Thrive assessed: 01/26/25 I am a: Patient What is your living situation today?: I have a steady place to live Within the past 12 months, did the food you bought not last and you didn't have the money to get more?: Sometimes True Within the past 12 months, did you worry whether your food would run out before you got money to buy more?: Sometimes True Do you have trouble paying for medicines?: I choose not to answer this question Do you have trouble getting transportation to medical appointments?: No Do you have trouble paying your heating and electricity bill?: I choose not to answer this question Do you have trouble taking care of your child, family member or friend?: No Do you have trouble with day-to-day activities such as bathing, preparing meals, shopping, managing finances, etc.?: No Are you currently unemployed and looking for a job?: No Are you interested in more education?: No Please select the resources that you would like help with: Housing/Intermediate Currently or been in a relationship where the following occur: I choose not to answer THRIVE Score: 2 AUDIT C Alcohol Use Questionnaire (AUDIT-C) 1. How often do you have a drink containing alcohol?: Never Total Score: 0 IZA-7 AMB Questionnaire IZA-7 Date IZA - 7 assessed: 01/26/25 Feeling nervous, anxious, or on edge: 0 = Not at all Not being able to stop or control worryin = Not at all Worrying too much about different things: 0 = Not at all Trouble relaxin = Not at all Being so restless that it is hard to sit still: 0 = Not at all Becoming easily annoyed or irritable: 0 = Not at all Feeling afraid as if something awful might happen: 0 = Not at all Total IZA-7 score (0-4 normal; 5-9 mild; 10-14 moderate; 15-21 severe): 0 Source: Developed by Drs. Altaf Nunez, Bella García, Deon Elizondo and colleagues, with an educational geraldo from [employer]. IZA-7 Assessment Billing IZA-7 Assessment Tool: IZA-7 Assessment 05434 Review of Systems Const All systems reviewed & are unremarkable except as noted in HPI and below Physical exam (Primary Care) Vital Signs: Last Vital Signs Pulse 98 01/26/25 11:33 BP 112/54 L 01/26/25 11:33 Pulse Ox 88 L 01/26/25 11:33 Oxygen Delivery Method Room Air 01/26/25 11:33 BMI result Body Mass Index 22.5 Tobacco/Smoking Status: Tobacco use Status Tobacco use date assessed 01/26/25 01/26/25 11:37 Patient Tobacco Use Status Current someday Tobacco 01/26/25 11:37 Tobacco use type Cigarette 01/26/25 11:37 e-Cigarette/Vaping Use Never Used 01/26/25 11:37 PHQ-9: PHQ-9 Score PHQ-9: Total score 3 01/26/25 11:53 Thrive Assessment: Date of Thrive Assessment Date Thrive assessed 01/26/25 01/26/25 11:37 Currently or been in a relationship where the following occur: I choose not to answer Const General: no acute distress Nutritional Appearance: thin Orientation/consciousness: patient oriented x3 Back/Spine/Pelvis Back: back tenderness Thoracic/Lumbar Spine: thoraco-lumbar spasm and lumbar spinal tenderness Neuro General: patient oriented x3, gait normal and moves all extremities Coding Level of Care Code Est Pt Level 4 (49596) Diagnoses Strain of lumbar region S39.012A Encounter type: initial encounter Additional Codes IZA-7 Assessment Billing - IZA-7 Assessment Tool: IZA-7 Assessment 90956 ([id number]) PHQ-9 - 94722 - PHQ-9 Billing: Yes ([id number]) Time Spent (min) 20 Assessment & Plan Assessment & Plan (1) Strain of lumbar region: Code(s): S39.012A - Strain of muscle, fascia and tendon of lower back, initial encounter Category: Medical Qualifiers: Encounter type: initial encounter Qualified Code(s): S39.012A - Strain of muscle, fascia and tendon of lower back, initial encounter Plan: Continue on Flexeril and Lidocaine Patches. Declined PT Rest back. Acetaminophen for pain relief. Medications: Changed From cyclobenzaprine 10 mg PO TID PRN 14 tabs 0RF muscle spasm S39.012A - Strain of muscle, fascia and tendon of lower back, initial encounter To cyclobenzaprine 10 mg PO BEDTIME 14 tabs 0RF muscle spasm S39.012A - Strain of muscle, fascia and tendon of lower back, initial encounter Refilled lidocaine 5% leave on most painful area for up to 12 hrs 1 patch topical DAILY 15 ea 0RF Discontinued carbamide peroxide 6.5% (Debrox) Discontinued Reason: Patient Completed Course 5 drps otic (ear) right DAILY 4 days 15 mL 0RF H61.21 - Impacted cerumen, right ear
--- OUTSIDE RECORDS SUMMARY | 2025-01-26 11:31 | XMS_ITS | Clinical Summary ---
Author Organization [employer] Address [address] [place] [address] Care Team Providers Care Credit Risk Management Director Name Role Phone Unavailable Primary Care Provider [...]
[2025-01-26 11:33] VITALS: BP 112/54; PULSE 98; O2SAT 88; BMI 22.5
== END 2025-01-26 11:55 | disposition home or self-care (01) ==
LOC: HO.HMCH 11:30
PROVIDERS: PCP Internal Medicine; Visit Provider Nurse Practitioner Family
DX: S39.012A Strain of muscle, fascia and tendon of lower back, initial encounter (principal)

== ENCOUNTER → 2025-01-26 11:29 | Outpatient (BNVA) | payer OTHER, SELFPAY | PROVIDERS: PCP Internal Medicine; Visit Provider Nurse Practitioner Family | DX: S39.012A Strain of muscle, fascia and tendon of lower back, initial encounter (principal); X50.0XXA Overexertion from strenuous movement or load, initial encounter; Y93.9 Activity, unspecified; Y92.9 Unspecified place or not applicable; Y99.0 Civilian activity done for income or pay | CPT/HCPCS: 96127; 99212 ==

== ENCOUNTER → 2025-01-30 14:29 | Outpatient (BNVA) | payer OTHER, SELFPAY | PROVIDERS: PCP Internal Medicine; Visit Provider Registered Nurse | DX: S39.012A Strain of muscle, fascia and tendon of lower back, initial encounter (principal); X50.0XXA Overexertion from strenuous movement or load, initial encounter | CPT/HCPCS: 99202 ==

== ENCOUNTER → 2025-02-02 15:21 | Outpatient (BNVA) | payer OTHER, SELFPAY | PROVIDERS: PCP Internal Medicine; Visit Provider Physician Assistant | DX: S39.012A Strain of muscle, fascia and tendon of lower back, initial encounter (principal); X50.0XXA Overexertion from strenuous movement or load, initial encounter | CPT/HCPCS: 99213 ==

== ENCOUNTER 2025-02-12 12:24 | Emergency (ER) | payer OTHER, SELFPAY ==
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
[2025-02-12 12:34] VITALS: BP 126/82; PULSE 90; O2SAT 98
[2025-02-12 12:37] VITALS: BP 104/66; PULSE 92; RESP 16; TEMP 36.8; O2SAT 96; BMI 21.8
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
--- NOTE | 2025-02-12 13:07 | PC.NURSE ---
Cervical collar removed by COCO Jeffers. Plan for imaging to rule out injury.
--- NOTE | 2025-02-12 13:24 | PC.NURSE ---
Away for imaging. Patient is requesting pain medication. COCO Jeffers notified. Awaiting response/orders.
[2025-02-12 14:21] VITALS: BP 104/66; PULSE 92; RESP 16; TEMP 36.8; O2SAT 96
--- OUTSIDE RECORDS SUMMARY | 2025-02-12 14:39 | XMS_ITS | Encounter Summary ---
Author Organization [employer] Address [address] [place] [address] Care Team Providers Care Chemical Etch Operator Name Role Phone Unavailable Primary Care Provider Unavailabl e Encounter Details Date Type Department Care Team (Latest Contact Info) Description 03/13/2019 Abstract [facility] CONVERSIONS Dental, Provider, DDS Social History Tobacco Use Types Packs/Day Years Used Date Smoking Tobacco: Never Assessed Sex and Gender Information Value Date Recorded Sex Assigned at Male 04/20/2022 10:14 AM EDT Legal Sex Male 10:14 AM EDT Gender Identity Choose not to disclose 10:14 AM EDT Sexual Orientation Choose not to disclose 2021 10:14 AM EDT documented as of this encounter Plan of Treatment Not on file documented as of this encounter Visit Diagnoses Not on filedocumented in this encounter
--- OUTSIDE RECORDS SUMMARY | 2025-02-12 14:39 | XMS_ITS | Clinical Summary ---
Author Organization [employer] Address [address] [facility] [address] [place] [address] Care Team Providers Care Contamination Consultant Name Role Phone Unavailable Primary Care Provider [...]
== END 2025-02-12 14:21 | disposition home or self-care (01) ==
PROVIDERS: Emergency Provider Emergency Medicine; PCP Internal Medicine
DX: S20.212A Contusion of left front wall of thorax, initial encounter (principal); S16.1XXA Strain of muscle, fascia and tendon at neck level, initial encounter; R07.89 Other chest pain; M25.561 Pain in right knee; M25.511 Pain in right shoulder; V13.4XXA Pedal cycle driver injured in collision with car, pick-up truck or van in traffic accident, initial encounter; Y93.9 Activity, unspecified; Y92.410 Unspecified street and highway as the place of occurrence of the external cause; Y99.8 Other external cause status; F17.210 Nicotine dependence, cigarettes, uncomplicated
CPT/HCPCS: 71101; 72100; 73030; 73564; 99283

== ENCOUNTER → 2025-02-12 12:55 | Outpatient (BNV) | payer OTHER, SELFPAY | PROVIDERS: Emergency Provider Emergency Medicine; PCP Internal Medicine; Visit Provider Radiology Diagnostic Radiology | DX: R07.89 Other chest pain (principal); M25.561 Pain in right knee; M89.8X6 Other specified disorders of bone, lower leg; M54.50 Low back pain, unspecified; M25.511 Pain in right shoulder; V03.10XA Pedestrian on foot injured in collision with car, pick-up truck or van in traffic accident, initial encounter | CPT/HCPCS: 73564 ==

== ENCOUNTER → 2025-02-13 15:12 | Outpatient (BNVA) | payer OTHER, SELFPAY | PROVIDERS: PCP Internal Medicine; Visit Provider Registered Nurse | DX: S39.012A Strain of muscle, fascia and tendon of lower back, initial encounter (principal); X50.0XXA Overexertion from strenuous movement or load, initial encounter; V89.0XXA Person injured in unspecified motor-vehicle accident, nontraffic, initial encounter | CPT/HCPCS: 99213 ==

== ENCOUNTER → 2025-02-22 15:00 | Outpatient (BNVA) | payer OTHER, SELFPAY | PROVIDERS: PCP Internal Medicine; Visit Provider Physician Assistant | DX: S39.012D Strain of muscle, fascia and tendon of lower back, subsequent encounter (principal); X50.0XXD Overexertion from strenuous movement or load, subsequent encounter; Z04.2 Encounter for examination and observation following work accident | CPT/HCPCS: 99213 ==

== ENCOUNTER 2025-02-23 08:50 | Outpatient (AMB) | payer OTHER, SELFPAY ==
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
[2025-02-23 08:53] VITALS: BP 130/74; PULSE 90; TEMP 36.1; O2SAT 98; BMI 22.4
--- OUTSIDE RECORDS SUMMARY | 2025-02-23 09:22 | XMS_ITS | Encounter Summary ---
Author Organization [employer] Address [address] [place] [address] Care Team Providers Care Public Health Service Officer Name Role Phone Unavailable Primary Care Provider Unavailabl e Encounter Details Date Type Department Care Team (Latest Contact Info) Description 03/13/2019 Abstract [facility] CONVERSIONS Dental, Provider, DDS Social History Tobacco [...]
--- OUTSIDE RECORDS SUMMARY | 2025-02-23 09:22 | XMS_ITS | Clinical Summary ---
Author Organization [employer] Address [address] [facility] [address] [place] [address] Care Team Providers Care Brand Strategy Manager Name Role Phone Unavailable Primary Care Provider [...]
== END 2025-02-23 09:09 | disposition home or self-care (01) ==
LOC: HO.HMCH 08:50
PROVIDERS: PCP Internal Medicine; Visit Provider Nurse Practitioner Family
DX: M25.561 Pain in right knee (principal); M54.2 Cervicalgia; M54.16 Radiculopathy, lumbar region

== ENCOUNTER → 2025-02-23 08:50 | Outpatient (BNVA) | payer OTHER, SELFPAY | PROVIDERS: PCP Internal Medicine; Visit Provider Nurse Practitioner Family | DX: M25.561 Pain in right knee (principal); M54.2 Cervicalgia; M54.16 Radiculopathy, lumbar region; S39.012A Strain of muscle, fascia and tendon of lower back, initial encounter; V09.9XXA Pedestrian injured in unspecified transport accident, initial encounter; Y93.55 Activity, bike riding; Y92.9 Unspecified place or not applicable; Y99.9 Unspecified external cause status | CPT/HCPCS: 99212 ==

== ENCOUNTER 2025-03-06 11:07 | Outpatient (AMB) | payer OTHER, SELFPAY ==
[2025-03-06 11:15] VITALS: BP 90/60; PULSE 94; RESP 18; TEMP 36.3; O2SAT 97; BMI 22.4
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
--- OUTSIDE RECORDS SUMMARY | 2025-03-06 15:14 | XMS_ITS | Encounter Summary ---
Author Organization [employer] Address [address] [facility] [address] [place] [address] Care Team Providers Care Batter Out Name Role Phone Unavailable Primary Care Provider Unavailabl e Encounter Details Date Type Department Care Team (Latest Contact Info) Description 03/13/2019 Abstract [facility] CONVERSIONS Dental, Provider, DDS Social [...]
--- OUTSIDE RECORDS SUMMARY | 2025-03-06 15:14 | XMS_ITS | Clinical Summary ---
Author Organization [employer] Address [address] [facility] [address] [place] [address] Care Team Providers Care Inverter And Clipper Name Role Phone Unavailable Primary Care Provider [...] COVID-19 Vaccine ( - 2023-2 5 season) 2025 Influenza Vaccine (#1) 2025 DTaP/Tdap/Td Vaccines (2 [...]
== END 2025-03-06 11:39 | disposition home or self-care (01) ==
LOC: HO.HMCH 11:08
PROVIDERS: PCP Internal Medicine; Visit Provider Internal Medicine
DX: M54.16 Radiculopathy, lumbar region (principal); M25.561 Pain in right knee; M54.2 Cervicalgia; M25.511 Pain in right shoulder

== ENCOUNTER → 2025-03-06 11:07 | Outpatient (BNVA) | payer OTHER, SELFPAY | PROVIDERS: PCP Internal Medicine; Visit Provider Internal Medicine | DX: M54.2 Cervicalgia (principal); M54.16 Radiculopathy, lumbar region; M25.561 Pain in right knee; M25.511 Pain in right shoulder | CPT/HCPCS: 99212 ==

== ENCOUNTER 2025-04-16 13:05 | Outpatient (AMB) | payer OTHER, SELFPAY ==
--- NOTE | 2025-04-16 13:10 | MHC.PC.OV ---
Vital Signs 04/16/25 13:11 Height 5 ft 5 in Weight 142 lb 8 oz BMI 23.7 BP 104/76 Blood Pressure Location Lt brachial Position Sitting Pulse 98 Pulse Source Pulse Oximeter Pulse Oximetry (%) 98 Oxygen Delivery Method Room Air Intake Visit Reasons: physical exam Elevator Dispatcher Required: No Accompanied by: Self / Same As Patient Allergies ibuprofen (IBUPROFEN) Allergy (Intermediate, Verified 04/16/25 13:20) ITCHY THROAT Penicillins (PENICILLINS) Allergy (Intermediate, Verified 04/16/25 13:20) REDNESS, SOB Medication List - Last Reconciled 04/16/25 by Yue Parrish MD acetaminophen 1,000 mg (2 x 500 mg) PO Q6H buprenorphine-naloxone 8-2 mg (Suboxone) 1 film sublingual BID lidocaine 5% 1 patch topical DAILY Tobacco use date assessed: 03/06/25 Dental Screening Dental Screen Date: 04/16/25 HPI HPI Comments History of Present Illness Details The patient is a 39-year-old male presenting for an annual physical examination. The patient reports pain in his rotator cuff and believes it may be a tear. He also complains of having clogged ears. Also complains of low back pain and wants physical therapy. Current medications include Tylenol, Suboxone, and a lidocaine patch. He has known allergies to ibuprofen and penicillin. The patient has no history of surgeries. His parents are and had no history of colon cancer. He is a former smoker and denies alcohol use. [facility] Medical History Lumbar back pain with radiculopathy affecting left lower extremity Cervicalgia Physical exam Right knee pain Dyslipidemia Methadone use Asthma Depression Anxiety Surgical History No pertinent past surgical history Family History Mother No problems noted. Father No problems noted. Social History Household Members: Spouse and Children Housing: Apartment Alcohol intake: never Patient Tobacco Use Status: Former Tobacco user Tobacco use type: Cigarette Cigarettes Per Day: 1 e-Cigarette/Vaping Use: Never Used Second Hand Smoke Exposure: No Substance Use Type: Crack/Cocaine, Marijuana and Opiates service: No Current occupational status: employed Current occupational exposures/hazards: No Cognitive needs: No Hearing needs: No Vision needs: No Questionnaire Thrive Questionnaire Date Thrive assessed: 01/26/25 I am a: Patient What is your living situation today?: I have a steady place to live Within the past 12 months, did the food you bought not last and you didn't have the money to get more?: Sometimes True Within the past 12 months, did you worry whether your food would run out before you got money to buy more?: Sometimes True Do you have trouble paying for medicines?: I choose not to answer this question Do you have trouble getting transportation to medical appointments?: No Do you have trouble paying your heating and electricity bill?: I choose not to answer this question Do you have trouble taking care of your child, family member or friend?: No Do you have trouble with day-to-day activities such as bathing, preparing meals, shopping, managing finances, etc.?: No Are you currently unemployed and looking for a job?: No Are you interested in more education?: No Please select the resources that you would like help with: Housing/Prison Currently or been in a relationship where the following occur: I choose not to answer THRIVE Score: 2 AUDIT C Alcohol Use Questionnaire (AUDIT-C) 1. How often do you have a drink containing alcohol?: Never 3. How often do you have six or more drinks on one occasion?: Never Total Score: 0 Score Reviewed/Action Taken: No IZA-7 AMB Questionnaire IZA-7 Date IZA - 7 assessed: 01/26/25 Source: Developed by Drs. Altaf Nunez, Bella García, Deon Elizondo and colleagues, with an educational geraldo from [employer]. Review of Systems Const All systems reviewed & are unremarkable except as noted in HPI and below Card Denies chest pain at rest, Denies chest pain with activity, Denies edema, Denies irregular heart rhythm, Denies claudication, Denies dyspnea, Denies dyspnea on exertion, Denies orthopnea, Denies paroxysmal nocturnal dyspnea and Denies slow heart rate Resp Denies cough, Denies dyspnea and Denies dyspnea on exertion Physical exam (Primary Care) Vital Signs: Last Vital Signs Pulse 98 04/16/25 13:11 BP 104/76 04/16/25 13:11 Pulse Ox 98 04/16/25 13:11 Oxygen Delivery Method Room Air 04/16/25 13:11 BMI result Body Mass Index 23.7 Tobacco/Smoking Status: Tobacco use Status Tobacco use date assessed 03/06/25 04/16/25 13:16 Patient Tobacco Use Status Former Tobacco user 04/16/25 13:16 Tobacco use type Cigarette 04/16/25 13:16 e-Cigarette/Vaping Use Never Used 04/16/25 13:16 Thrive Assessment: Date of Thrive Assessment Date Thrive assessed 01/26/25 04/16/25 13:16 Currently or been in a relationship where the following occur: I choose not to answer HENMT Head: Yes normal to inspection, Yes normocephalic and Yes atraumatic Ears: external ears normal Eyes General: appearance normal, both eyes and all related structures Eyelids: Yes eyelids normal Conjunctivae: conjunctivae normal Neck Neck: Yes normal visual inspection and Yes supple Resp Effort & Inspection: normal respiratory effort Auscultation: clear to auscultation bilaterally Cardio Jugular venous distension: no JVD Rate: regular rate Rhythm: regular rhythm Heart sounds: S1 normal heart sound present and S2 normal heart sound present GI Inspection: Yes normal to inspection Palpation (GI): Soft to palpation and nontender Auscultation: normal bowel sounds Skin General skin exam: no rashes or lesions noted Neuro General: no focal motor deficits Extrem General: Yes full ROM Psych Appearance: grossly normal Coding Level of Care Code Est Pt Level 3 (66193) Est Pt Prev Care 18-39y(57891) Diagnoses Physical exam Z00.00 Lumbar back pain with radiculopathy affecting left lower extremity M54.16 Opioid dependence on agonist therapy F11.20 Time Spent (min) 31 Assessment & Plan Assessment & Plan (1) Physical exam: Code(s): Z00.00 - Encounter for general adult medical examination without abnormal findings Category: Medical (2) Lumbar back pain with radiculopathy affecting left lower extremity: Code(s): M54.16 - Radiculopathy, lumbar region Category: Medical (3) Opioid dependence on agonist therapy: Code(s): F11.20 - Opioid dependence, uncomplicated Category: Medical Plan Plan 1. Encounter for general adult medical examination without abnormal findings Z00.00 The patient presented for an annual physical exam. The plan includes obtaining laboratory studies. The patient was advised that he is due for a tetanus vaccine next year. 2. Lumbar raciculopathy and right shoulder pain Start PT. Orders: Orders PT Evaluation and Treatment Today M54.16 - Radiculopathy, lumbar region PT Evaluation and Treatment Today M25.511 - Pain in right shoulder Lipid Panel Today Z00.00 - Encounter for general adult medical examination without abnormal findings Comprehensive [place]. Panel Fast Today Z00.00 - Encounter for general adult medical examination without abnormal findings
[2025-04-16 13:11] VITALS: BP 104/76; PULSE 98; O2SAT 98; BMI 23.7
== END 2025-04-16 13:34 | disposition home or self-care (01) ==
LOC: HO.HMCH 13:05
PROVIDERS: PCP Internal Medicine; Visit Provider Internal Medicine
DX: Z00.00 Encounter for general adult medical examination without abnormal findings (principal); M54.16 Radiculopathy, lumbar region; F11.20 Opioid dependence, uncomplicated

== ENCOUNTER → 2025-04-16 13:05 | Outpatient (BNVA) | payer OTHER, SELFPAY | PROVIDERS: PCP Internal Medicine; Visit Provider Internal Medicine | DX: Z00.00 Encounter for general adult medical examination without abnormal findings (principal); M54.16 Radiculopathy, lumbar region; M25.511 Pain in right shoulder; F11.20 Opioid dependence, uncomplicated | CPT/HCPCS: 99212; 99395 ==

== ENCOUNTER 2025-04-25 14:59 | Outpatient (RCR) | payer OTHER, SELFPAY ==
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
--- NOTE | 2025-05-22 11:54 | MHC.PT.DC ---
[facility] [place] Office [place] Office [place] Office [address] [place] [address] [phone] F: [phone] F: [phone] F: [phone] F: [phone] Physical Therapy Discharge Report Diagnosis: Cervicalgia Date of Surgery: NA Date of Evaluation: 03/26/25 Date of Discharge: 05/22/25 Treatments to Date: 7 Cancellations to Date: 0 No Shows to Date: 0 Discharge Status: Achieved Goals Improved Function Independent with HEP Discharge Summary: Niles attended 7 PT visits and made significant improvement with it. He is independent with all HEP as well. He is therefore being d/c from PT. Electronically signed by: Es Benjamin, PT DPT Please sign and return to therapist. Thank you for your referral.
== END 2025-05-22 11:54 | disposition home or self-care (01) ==
LOC: HO.PT 14:59
PROVIDERS: PCP Internal Medicine; Visit Provider Nurse Practitioner Family
DX: M54.2 Cervicalgia (principal)
CPT/HCPCS: 97110; 97161; 97530

== ENCOUNTER 2025-04-28 10:53 | Outpatient (AMB) | payer OTHER, SELFPAY ==
--- OUTSIDE RECORDS SUMMARY | 2025-04-28 10:55 | XMS_ITS | Clinical Summary ---
Author Organization [employer] Address [address] [place] [address] Care Team Providers Care Staff Physical Therapist Name Role Phone Unavailable Primary Care Provider [...]
--- OUTSIDE RECORDS SUMMARY | 2025-04-28 10:55 | XMS_ITS | Encounter Summary ---
Author Organization [employer] Address [address] [place] [address] Care Team Providers Care Network Contract Manager Name Role Phone Unavailable Primary Care Provider Unavailabl e Encounter Details Date Type Department Care Team (Latest Contact Info) Description 03/13/2019 Abstract [facility] CONVERSIONS Dental, Provider, DDS Social History [...]
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
[2025-04-28 12:06] VITALS: BP 120/76; PULSE 111; O2SAT 98
== END 2025-04-28 12:46 | disposition home or self-care (01) ==
LOC: HO.HMCWIC 10:53
PROVIDERS: PCP Internal Medicine; Visit Provider Physician Assistant Medical
DX: S39.012A Strain of muscle, fascia and tendon of lower back, initial encounter (principal)

== ENCOUNTER 2025-06-06 13:54 | Outpatient (AMB) | payer OTHER, SELFPAY ==
[2025-06-06 14:03] VITALS: BP 112/68; PULSE 102; RESP 16; TEMP 36.1; O2SAT 96; BMI 27.2
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
== END 2025-06-06 14:52 | disposition home or self-care (01) ==
LOC: HO.HMCH 13:55
PROVIDERS: PCP Internal Medicine; Visit Provider Internal Medicine
DX: M25.511 Pain in right shoulder (principal)

== ENCOUNTER → 2025-06-06 13:54 | Outpatient (BNVA) | payer OTHER, SELFPAY | PROVIDERS: PCP Internal Medicine; Visit Provider Internal Medicine | DX: M25.511 Pain in right shoulder (principal); M25.561 Pain in right knee; M54.16 Radiculopathy, lumbar region; M54.2 Cervicalgia; F11.20 Opioid dependence, uncomplicated; V13.4XXD Pedal cycle driver injured in collision with car, pick-up truck or van in traffic accident, subsequent encounter | CPT/HCPCS: 96127; 99212 ==